=== PATIENT | female | born 1970 | race Caucasian/White ===

== ENCOUNTER 2017-05-07 07:47 | Inpatient (IN) | payer BC ==
[~2017-05-07 07:47] MED LIST: Acetaminophen 500 MG Tab PO SCH; Clindamycin Phosphate in D5W 900 MG in Premix Bag 1 BAG IV SCH; Famotidine 20 MG/2 ML SDV IVPUSH SCH; Ketorolac 30 MG/ML SDV IVPUSH SCH; Lactated Ringers 1,000 ML IV SCH; Ropivacaine 49.25 ML, EPINEPHrine 0.5 MG, cloNIDine 80 MCG in Sodium Chloride 0.9% 49.4... INJECT ONE; Ropivacaine 49.25 ML, Ketorolac 30 MG, EPINEPHrine 0.5 MG, cloNIDine 80 MCG in Sodium C... INJECT ONE; Scopolamine 1.5 MG Transdermal Patch TRDERM SCH; oxyCODONE ER 20 MG TAB.ER PO SCH
[2017-05-07] MEDS ORDERED: Lidocaine 2% 5 ML SDV ONE (08:50)
[2017-05-07] MEDS ORDERED: Ondansetron 4 MG/2 ML SDV ONE (08:50)
[2017-05-07] MEDS ORDERED: Propofol 200 MG/20 ML SDV ONE (08:50)
[2017-05-07] MEDS ORDERED: fentaNYL 250 MCG/5 ML SDV ONE (08:51)
[2017-05-07] MEDS ORDERED: Midazolam 1 MG/ML 2 ML SDV ONE (08:51)
--- NOTE | 2017-05-07 09:29 | PCM.PREANE ---
Preanesthetic Assessment - Procedure Proposed Procedure: Right Knee Total Arthroplasty - Anesthesia/Transfusion/Family Hx Anesthesia History: Prior Anesthesia Without Reaction Family History of Anesthesia Reaction: No Transfusion History: No Prior Transfusion(s) Additional History: Reurrent rapid heart rate - thoroughly evaluated and under treatment with PM metoprolol. - Review of Systems General: No Symptoms Pulmonary: Other (hx asthma; uses inhalants PRN) Cardiovascular: Palpitations Gastrointestinal: No Symptoms Neurological: Difficulty Walking (due to knee problem), Change in Speech (of back pain), Other (hx motion sickness prone; back pain - recurrent) Other: Reports: Anxiety - Physical Assessment NPO Status Date: 05/06/17 NPO Status Time: 23:00 O2 Sat by Pulse Oximetry: 95 Respiratory Rate: 16 Vital Signs: Last Vital Signs Temp 95.9 F 05/07/17 07:52 Pulse 44 L 05/07/17 07:52 Resp 16 05/07/17 07:52 BP 128/55 L 05/07/17 07:52 Pulse Ox 95 05/07/17 07:52 Height: 5 ft 7 in Weight: 220 lb ASA Class: 3 Mental Status: Alert & Oriented x3 Airway Class: Mallampati = 1 Dentition: Reports: Normal Dentition, Singer(s), Bridge (#8,9; PERMANENT) ROM/Head Extension: Full Lungs: Clear to Auscultation, Normal Respiratory Effort Cardiovascular: Regular Rate, Regular Rhythm, No Murmurs - Lab Values: Laboratory Last Values HCG, Qual NEGATIVE (NEG) 05/07/17 08:23 Blood Type O POSITIVE 05/07/17 08:22 Antibody Screen NEGATIVE 05/07/17 08:22 - Allergies Allergies/Adverse Reactions: Allergies Allergy/AdvReac Type Severity Reaction Status Date / Time Penicillins Allergy Anaphylactic Verified 05/07/17 08:51 Shock pneumococcal vaccine Allergy Hives Verified 05/07/17 08:51 - Blood Blood Available: Yes Product(s) Available: PRBC (T and S) - Anesthesia Plan Pre-Op Medication Ordered: None Beta Gillian: Metoprolol Med Last Dose Date: 05/06/17 Med Last Dose Time: 20:00 - Acknowledgements Anesthesia Type Planned: Spinal (with sedation ) Pt an Appropriate Candidate for the Planned Anesthesia: Yes Alternatives and Risks of Anesthesia Discussed w Pt/Guardian: Yes Pt/Guardian Understands and Agrees with Anesthesia Plan: Yes PreAnesthesia Questionnaire HEENT History: Reports: Allergic Rhinitis Cardiovascular History: Reports: Other (See Below) Other Cardiovascular History: PVC's Respiratory History: Reports: Asthma Gastrointestinal History: Reports: Irritable Bowel Syndrome Genitourinary History: Reports: None 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 History: Reports: 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, Musculoskeletal History: Reports: Arthritis Neurological History: Reports: Headaches, Chronic Endocrine/Metabolic History: Reports: Obesity/BMI 30+ - Past Surgical History Head Surgeries/Procedures: Reports: None HEENT Surgical History: Reports: Naso-Sinus Surgery, Tonsillectomy Female Surgical History: Reports: Other (See Below) Other Female Surgeries/Procedures: ESSURE, laparoscopy x4 for endometriosis, breast bx's rt x2, lt x1 Musculoskeletal Surgical History: Reports: Arthroscopic Knee Other Musculoskeletal Surgeries/Procedures:: knee surgery x2 - SUBSTANCE USE Smoking Status *Q: Never Smoker Recreational Drug Use History: No - HOME MEDS Home Medications: Home Meds Albuterol Sulfate [Proair Hfa] 1 puff INH ASDIRECTED PRN 05/02/17 [History] Black Cohosh 1 tab PO DAILY 05/02/17 [History] Metoprolol Succinate 25 mg PO BEDTIME 05/02/17 [History] Multivits-Minerals/FA/Lycopene [One Daily Tablet] 1 tab PO DAILY 05/02/17 [ History] - CURRENT (IN HOUSE) MEDS Current Meds: Current Medications Acetaminophen (Tylenol Extra Strength) 1,000 mg PO ONARRIVE TSEVE Last Admin: 05/07/17 08:13 Dose: 1,000 mg Famotidine (Pepcid) 40 mg IVPUSH ONARRIVE STEVE Last Admin: 05/07/17 08:16 Dose: 40 mg Lactated Ringer's (Ringers, Lactated) 1,000 mls @ 100 mls/hr IV ASDIRECTED STEVE Last Admin: 05/07/17 08:12 Dose: 100 mls/hr Clindamycin Phosphate 900 mg/ (Premix) 50 mls @ 100 mls/hr IV ONCALL STEVE Last Admin: 05/07/17 09:18 Dose: 100 mls/hr Oxycodone HCl (Oxycontin) 20 mg PO ONARRIVE STEVE Last Admin: 05/07/17 08:15 Dose: 20 mg Scopolamine (Transderm-Scop) 1.5 mg TRDERM ONARRIVE STEVE Last Admin: 05/07/17 08:16 Dose: 1.5 mg Tranexamic Acid (Cyklokapron) 4,000 mg IV SEECOMMENT STEVE Discontinued Medications Fentanyl (Sublimaze) Confirm Administered Dose 250 mcg .ROUTE .STK-MED ONE Stop: 05/07/17 08:52 Ropivacaine 49.25 ml/Ketorolac Tromethamine 30 mg/Epinephrine HCl 0.5 mg/ Clonidine HCl 80 mcg/ Sodium Chloride 100 mls @ 50 mls/min INJECT ONETIME ONE Stop: 05/07/17 06:01 Ropivacaine 49.25 ml/Epinephrine HCl 0.5 mg/Clonidine HCl 80 mcg/ Sodium Chloride 100 mls @ 50 mls/min INJECT ONETIME ONE Stop: 05/07/17 07:43 Ketorolac Tromethamine (Toradol) 30 mg IVPUSH ONARRIVE [facility] Lidocaine (Xylocaine-Mpf 2%) Confirm Administered Dose 5 ml .ROUTE .STK-MED ONE Stop: 05/07/17 08:51 Midazolam HCl (Versed 1 Mg/Ml) Confirm Administered Dose 2 mg .ROUTE .STK-MED ONE Stop: 05/07/17 08:52 Ondansetron HCl (Zofran) Confirm Administered Dose 4 mg .ROUTE .STK-MED ONE Stop: 05/07/17 08:51 Propofol (Diprivan 20 Ml) Confirm Administered Dose 200 mg .ROUTE .STK-MED ONE Stop: 05/07/17 08:51 Tranexamic Acid (Cyklokapron) Confirm Administered Dose 4,000 mg .ROUTE .STK- MED ONE Stop: 05/07/17 07:48
[2017-05-07] MEDS ORDERED: Albuterol 6.7 GM Inhaler INH PRN (09:32)
[2017-05-07] MEDS ORDERED: Morphine 10 MG/ML Syringe IVPUSH PRN (09:36)
[2017-05-07] MEDS ORDERED: oxyCODONE 5 MG Tab PO PRN (09:36)
[2017-05-07] MEDS ORDERED: Bisacodyl 10 MG Supp RECTAL PRN ×2 (09:36→09:54)
[2017-05-07] MEDS ORDERED: diphenhydrAMINE 25 MG Cap PO PRN ×2 (09:36→09:54)
[2017-05-07] MEDS ORDERED: Aluminum Hydroxide/Magnesium Hydroxide/Simethicone Susp 30 ML Cup PO PRN ×2 (09:36→09:54)
[2017-05-07] MEDS ORDERED: Scopolamine 1.5 MG Transdermal Patch ONE (09:37)
[2017-05-07] MEDS ORDERED: Morphine 4 MG/ML Syringe IVPUSH PRN (09:54)
[2017-05-07] MEDS ORDERED: Phenylephrine/Normal Saline 100 MCG/ML 10 ML Syringe ONE (09:57)
[2017-05-07] MEDS ORDERED: fentaNYL 100 MCG/2 ML SDV IVPUSH PRN (10:22)
--- NOTE | 2017-05-07 12:16 | PCM.OPNOTE ---
- General Post-Op/Procedure Note Date of Surgery/Procedure: 05/07/17 Operative Procedure(s): R TKA. HWR R tibia (deep implant) Post-Op Diagnosis: R TKA. Retained HW R tibia Anesthesia Technique: General LMA, Spinal Primary Surgeon: Maria M Santos Director Clinical Information Services: Shahla Vieyra Director Clinical Information Services: Marilyn Gerber in mLs: 50 Condition: Good Free Text/Narrative:: tt=85 min #[id number]
[2017-05-07] MEDS ORDERED: Ondansetron 4 MG/2 ML SDV IVPUSH PRN (14:04)
--- NOTE | 2017-05-07 14:20 | PCM.CONS ---
Addendum entered and electronically signed by Dilan Weldon MD 05/07/17 14:30: Original Note: H&P History of Present Illness - General Date of Service: 05/07/17 Admit Problem/Dx: Admission Diagnosis/Problem Admission Diagnosis/Problem Replacement of total knee joint Source of Information: Patient History Limitations: Reports: Altered Mental Status - History of Present Illness Initial Comments - Free Text/Narative: 46F with past medical history of PVC's on metoprolol for which I have been consulted for by orthopedics for medical management after a total right knee replacement. When meeting with the patient, she tells me that she feels nauseous and was complaining of a mild headache. However, she says she otherwise feels fine. She has no current complaints besides those mentioned. Her pain is well-controlled. She denies any palpitations or chest pain. There was some limitation to history gathering secondary to post anesthesia effects. - Related Data Allergies/Adverse Reactions: Allergies Allergy/AdvReac Type Severity Reaction Status Date / Time Penicillins Allergy Anaphylactic Verified 05/07/17 08:51 CDT Shock pneumococcal vaccine Allergy Hives Verified 05/07/17 08:51 CDT Home Medications: Home Meds Albuterol Sulfate [Proair Hfa] 1 puff INH ASDIRECTED PRN 05/02/17 [History] Black Cohosh 1 tab PO DAILY 05/02/17 [History] Metoprolol Succinate 25 mg PO BEDTIME 05/02/17 [History] Multivits-Minerals/FA/Lycopene [One Daily Tablet] 1 tab PO DAILY 05/02/17 [ History] Past Medical History HEENT History: Reports: Allergic Rhinitis Cardiovascular History: Reports: Other (See Below) Other Cardiovascular History: PVC's Respiratory History: Reports: Asthma Gastrointestinal History: Reports: Irritable Bowel Syndrome Genitourinary History: Reports: None 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: Reports: 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, Musculoskeletal History: Reports: Arthritis Neurological History: Reports: Headaches, Chronic Endocrine/Metabolic History: Reports: Obesity/BMI 30+ - Past Surgical History Head Surgeries/Procedures: Reports: None HEENT Surgical History: Reports: Naso-Sinus Surgery, Tonsillectomy Female Surgical History: Reports: Other (See Below) Other Female Surgeries/Procedures: ESSURE, laparoscopy x4 for endometriosis, breast bx's rt x2, lt x1 Musculoskeletal Surgical History: Reports: Arthroscopic Knee Other Musculoskeletal Surgeries/Procedures:: knee surgery x2 Social & Family History - Tobacco Use Smoking Status *Q: Never Smoker - Recreational Drug Use Recreational Drug Use: No H&P Review of Systems - Review of Systems: Review Of Systems: See Below General: Denies: Fever, Chills, Malaise, Weakness, Fatigue HEENT: Reports: Headaches. Denies: Sore Throat, Visual Changes Pulmonary: Denies: Shortness of Breath, Pleuritic Chest Pain, Cough Cardiovascular: Denies: Chest Pain, Palpitations, Dyspnea on Exertion, Lightheadedness, Syncope, Blood Pressure Problem Gastrointestinal: Denies: Abdominal Pain Skin: Reports: No Symptoms Psychiatric: Reports: No Symptoms Neurological: Reports: No Symptoms Hematologic/Lymphatic: Reports: No Symptoms Immunologic: Reports: No Symptoms Exam - Exam Exam: See Below - Vital Signs Vital Signs: Last Vital Signs Temp 36.2 C 05/07/17 14:00 Pulse 62 05/07/17 14:00 Resp 18 05/07/17 14:00 BP 120/58 L 05/07/17 14:00 Pulse Ox 96 05/07/17 14:00 Weight: 99.79 kg - Exam General: Alert, Oriented, Cooperative HEENT: Conjunctiva Clear, EOMI, Hearing Intact, Mucosa Moist & [place], Nares Patent Neck: Supple, Trachea Midline, Full Range of Motion Lungs: Clear to Auscultation, Normal Respiratory Effort. No: Crackles, Rales, Rhonchi, Stridor, Wheezing Cardiovascular: Regular Rate, Regular Rhythm, Normal S1, Normal S2 GI/Abdominal Exam: Normal Bowel Sounds, Soft, Non-Tender Skin: Warm, Intact Psychiatric: Alert, Normal Affect, Normal Mood - Patient Data Lab Results Last 24 hrs: Laboratory Results - last 24 hr 05/07/17 05/07/17 Range/Units 08:22 08:23 HCG, Qual NEGATIVE (NEG) Blood Type O POSITIVE Antibody Screen NEGATIVE Consult PN Assessment/Plan POD#: 0 Procedures: Procedures ASSAY OF GONADOTROPIN (FSH) (12/20/15) ASSAY OF GONADOTROPIN (LH) (12/20/15) ASSAY THYROID STIM HORMONE (12/09/14) CARDIOVASCULAR STRESS TEST (12/21/16) CHEST X-RAY 2VW FRONTAL&LATL (04/16/17) CHORIONIC GONADOTROPIN ASSAY (01/30/14) COMP SCREEN MAMMOGRAM ADD-ON (12/20/15) COMPLETE CBC W/AUTO DIFF WBC (04/16/17) COMPREHEN METABOLIC PANEL (12/09/14) ELECTROCARDIOGRAM TRACING (04/16/17) GLYCOSYLATED HEMOGLOBIN TEST (04/16/17) HPV HIGH-RISK TYPES (12/22/16) HT MUSCLE IMAGE SPECT SING (12/25/16) INFLUENZA ASSAY W/OPTIC (08/21/16) LIPID PANEL (12/09/14) MANUAL THERAPY 1/> REGIONS (04/13/14) METABOLIC PANEL TOTAL CA (04/16/17) MRI JOINT OF LWR EXTR W/DYE (02/04/14) PROTHROMBIN TIME (04/16/17) PT EVALUATION (03/12/14) ROUTINE VENIPUNCTURE (04/16/17) THERAPEUTIC EXERCISES (04/22/14) TTE W/DOPPLER COMPLETE (12/25/16) URINALYSIS AUTO W/SCOPE (04/27/17) URINE BACTERIA CULTURE (12/03/13) URINE CULTURE/COLONY COUNT (04/16/17) US EXAM BREAST(S) (01/13/14) X-RAY EXAM KNEE 4 OR MORE (07/26/16) (1) PVC (premature ventricular contraction) SNOMED Code(s): 54446768 Code(s): I49.3 - VENTRICULAR PREMATURE DEPOLARIZATION Priority: Low Current Visit: Yes Assessment:: 1. History of PVC's - currently asymptomatic. On home medication Metoprolol 25mg PO QHS. 2. Nausea Problem List Initiated/Reviewed/Updated: Yes My Orders Last 24 Hours: My Active Orders 1. CBC, CMP, Magnesium now, recheck in AM 2. Recommend pharmacological DVT prophylaxis once deemed safe by surgery. 3. Continue telemetry 4. IV Zofran 4mg Q6hrs PRN for nausea/vomiting.
[2017-05-07 15:02] LABS: CHLORIDE,CL 109 mmol/L (98-110); SODIUM,NA 141 mmol/L (136-146)
[2017-05-07] MEDS ORDERED: Magnesium Sulfate/Water 2 GM in Premix Bag 1 BAG IV ONE (15:38)
--- NOTE | 2017-05-07 16:32 | CR ---
EXAMINATION: Right knee HISTORY: Arthroplasty COMPARISON: 07/26/2016 TECHNIQUE: 2 views FINDINGS/IMPRESSION: Right total knee hardware is demonstrated in good position and alignment. There is an anchor noted within the distal right femur from previous ACL repair. Operative soft tissue funk ges noted.
[2017-05-07] MEDS ORDERED: Ketorolac 30 MG/ML SDV IVPUSH SCH (17:00)
--- NOTE | 2017-05-07 19:03 | OR ---
SURGEON: Maria M Santos MD DATE OF PROCEDURE: 05/07/2017 PREOPERATIVE DIAGNOSES: 1. Degenerative joint disease, right knee, tricompartmental. 2. Retained hardware, right proximal tibia and distal femur. POSTOPERATIVE DIAGNOSES: 1. Degenerative joint disease, right knee, tricompartmental. 2. Retained hardware, right proximal tibia and distal femur. PROCEDURES: 1. Right total knee arthroplasty using standard instrumentation. 2. Hardware removal, right tibia, deep implant. ASSISTANTS: 1. Shahla Vieyra PA-C. 2. Marilyn Gerber PA-C. ANESTHESIA: Spinal and general. ESTIMATED BLOOD LOSS: 50 mL. TOURNIQUET TIME: 85 minutes. COMPLICATIONS: None. DVT PROPHYLAXIS: PAS boot and KATHY hose to the nonoperative leg. IMPLANTS USED: Kelsey Persona femoral component size 9 narrow (LPS), tibial component size E, 10 mm all-polyethylene articular surface, and 32 mm all-polyethylene patella. INTRAOPERATIVE FINDINGS: Showed evidence of tricompartmental degenerative joint disease with grade 4 chondromalacia in all compartments. Osteophyte formation was also noted. Osteophyte formation was abundant within the notch as she has had a previous ACL reconstruction. As the tibia was prepared, we did encounter the omid within the proximal tibia and we were unable to fully prepare the tibia. The tibial preparatory instruments were removed. The omid were then removed. There was some difficulty removing these as it was abundant bone formation over the omid. The bone was removed with an osteotome. BRIEF HISTORY: Jenelle is a 46-year-old female who has had complaint of progressive right knee pain. She has previously undergone a right knee ACL reconstruction many years ago. Due to her lack of response to conservative treatment, I did recommend surgical intervention. The risks and goals of the procedure were discussed with the patient and were documented preoperatively. She agreed to proceed. DESCRIPTION OF PROCEDURE: The patient was properly identified and brought to the operating room. The patient was then transferred from the operating room cart and placed on the operating table in a supine position. Anesthesia was administered by the anesthesia staff. After adequate anesthesia was obtained, a well-padded tourniquet was applied to the surgical lower extremity. West[place] catheter was placed. The lower extremity was then prepped in standard fashion using ChloraPrep solution. It was then sterilely draped. A time-out was performed to ensure correct site and procedure. Preoperative antibiotics were given along with one gram tranexamic acid IV. The surgical site had been marked preoperatively. An Esmarch was used to exsanguinate the right lower extremity and the tourniquet was inflated. An incision was made over the anterior aspect of the knee. The subcutaneous tissues were dissected down to the level of the fascia. A medial parapatellar approach to the knee was made. A portion of the infrapatellar fat pad was then excised. The distal femur was then exposed. The step reamer was used to gain access to the intramedullary canal. This was placed in 6 degrees of valgus. Pins were placed. The distal femoral cutting block was placed and the distal femoral cut was made. Instrumentation was then removed. The femur was then sized. Both Whitesides' line and the epicondylar axis were then marked with electrocautery. The 4-in-1 cutting block was placed. This was placed in a slightly externally rotated position, which corresponded well with the previously drawn lines. The cutting guide was then pinned into position. An Ganesh wing guide was used to check the depth of resection of our anterior condylar cut and it was felt that no notching would occur. The anterior condylar cut was then made followed by the posterior condylar cut. Both the posterior chamfer and anterior chamfer cuts were then made. The cutting block was then removed along with the excess bony remnants. We then turned our attention to the tibia. The anterior cruciate ligament and posterior cruciate ligament were released and a posterior cruciate ligament retractor was placed to allow the tibia to be pulled anteriorly. The tibial extra-medullary guide was then positioned. We chose to take approximately 2 mm off the lowest side. The proximal tibia cutting guide was then placed and screwed into position. The proximal tibial resection was then made with care being taken to protect the patellar tendon. The bony resection was then removed. The remainder of the medial and lateral meniscus were then excised. Care was taken to protect the popliteus tendon. The tibia was then sized to the appropriate size. The distal femur was then elevated. The posterior capsule was stripped off the distal femur both medially and laterally. The posterior capsule along with the medial and lateral gutters were then injected with a standard mixture consisting of clonidine, epinephrine, Toradol, and ropivacaine, unless any allergies were found preoperatively. The femoral component was then placed onto the distal femur in a slightly lateral position. This fit the femur well. A box cut was then made without difficulty. This was then removed. The tibial trial along with the polyethylene liner was then placed. The knee came easily into full extension and was stable to varus and valgus stressing both in full extension and flexion. Any additional releases were performed at this time. We then returned our attention to the patella. The patella was everted and towel clamps were used to hold the patella in position. It was resected to a 15 millimeter thickness. It was then sized to the appropriate size. It was prepared in the usual fashion after placing the predetermined size clamps. This was placed in a slightly superior and medial position. The clamp was then removed. The patellar trial button was placed. The knee was taken through a range of motion using the no-touch technique. The patella tracked centrally. A drop zhanna was then placed to check alignment. All instruments were then removed from the knee. The tibial sizer was then placed on the tibia. We attempted to prepare the tibia was in the usual fashion using the reamer and broach. We encountered the proximal tibia omid, which did not allow the reamer to seat fully. The omid were then exposed. Unfortunately, the omid were crossed over each other,which made putting on the staple removal guide difficulty. I was able to use osteotomes to fully expose the omid. The proximal staple was then elevated which allowed the staple removal attachment and slap hammer to be attached. Both omid were then removed without difficulty. The proximal tibia reamer and broach were then used in the standard fashion. They were then removed. All bony surfaces were copiously irrigated with Pulsavac solution. They were then suctioned dry. Cement was prepared on the back table in the usual manner. Antibiotic impregnated cement was used if the patient was diabetic. Once it was prepared, the bone ends were again suctioned dry. The tibia was cemented into place first. This was malleted into position. Excess cement was then cleared. The femur was then placed in a similar manner. We placed the polyethylene trial into place and the knee was brought into full extension. An axial load was placed while keeping the knee in full extension. The patella button was also cemented into position and the clamp was used to hold this in place as the cement was allowed to cure. The wound was copiously irrigated with saline using a Pulsavac technical artist. Following this, 1 gram of tranexamic acid was applied topically to the wound during the curing process. After we had adequate curing of the cement, the knee was again taken through a range of motion. The size of the polyethylene was then determined. The polyethylene trial was then removed. The tibial tray was suctioned to make sure there was no remaining soft tissue or cement. Excess cement was cleared from around the edges of the prosthesis as well. The tourniquet was then deflated. We were able to observe for any excess bleeding and none was noted. Electrocautery was used to maintain hemostasis. An additional gram of tranexamic acid was given IV. The retractors were again placed and the predetermined polyethylene was then placed. This was locked into position without difficulty. The knee was again taken through a range of motion with no change from the prior exam. The fascial layer was closed with Number One Vicryl. The subcutaneous tissues were closed with 2-0 Vicryl. The skin was closed with omid. Xeroform gauze was placed over the wound and a bulky dressing was applied. The patient was then awakened from anesthesia and transferred back to the operating room cart. They were brought to the recovery room in stable condition. All needle and sponge counts were correct. JOSSUE / OWEN /[id number] JUAN LUIS
[2017-05-07] MEDS ORDERED: oxyCODONE ER 20 MG TAB.ER PO SCH (21:00)
[2017-05-07] MEDS ORDERED: Metoprolol Succinate 25 MG Tab.ER PO SCH (21:00)
[2017-05-07] MEDS ORDERED: Docusate Sodium 100 MG Cap PO SCH (21:00)
[2017-05-08 05:44] LABS: CHLORIDE,CL 105 mmol/L (98-110); SODIUM,NA 138 mmol/L (136-146)
--- NOTE | 2017-05-08 06:51 | PCM48HPAN ---
Post Anesthesia Note - EVALUATION WITHIN 48HRS OF ANESTHETIC Vital Signs in Normal Range: Yes Patient Participated in Evaluation: Yes Respiratory Function Stable: Yes Airway Patent: Yes Cardiovascular Function Stable: Yes Hydration Status Stable: Yes Pain Control Satisfactory: Yes Nausea and Vomiting Control Satisfactory: Yes Mental Status Recovered: Yes - COMMENTS/OBSERVATIONS Free Text/Narrative:: Pt reports pain is well controlled on PO Rx. Some nausea yesterday.
--- NOTE | 2017-05-08 07:59 | PCM.SURGPN ---
<Jose Rubio - Last Filed: 05/08/17 07:52> - General Info Date of Service: 05/08/17 Date of Surgery/Procedure: 05/07/17 POD#: 1 Post-Op Diagnosis: Right Total Knee Arthroplasty Admission Diagnosis/Problem: Arthritis of right knee Functional Status: Reports: Pain Controlled, Incentive Spirometry. Denies: Tolerating Diet, Ambulating, Urinating - Review of Systems General: Denies: Fever, Chills Pulmonary: Denies: Shortness of Breath (On 1 L/O2 via NC), Cough Cardiovascular: Denies: Chest Pain, Palpitations Gastrointestinal: Denies: Nausea, Vomiting Genitourinary: Denies: No Symptoms (With chapman) Musculoskeletal: Reports: Joint Pain (Mild right knee pain) Neurological: Denies: Confusion, Numbness Psychiatric: Denies: Confusion - Patient Data Vitals - Most Recent: Last Vital Signs Temp 36.8 C 05/08/17 05:20 Pulse 68 05/08/17 05:20 Resp 20 05/08/17 05:20 BP 110/59 L 05/08/17 05:20 Pulse Ox 95 05/08/17 05:20 Weight - Most Recent: 99.79 kg I&O - Last 24 Hours: Intake & Output 05/07/17 05/08/17 05/08/17 22:59 06:59 14:59 Intake Total 0 1003 Output Total 180 980 Balance -180 23 Lab Results Last 24 Hrs: Laboratory Results - last 24 hr 05/07/17 05/07/17 05/07/17 Range/Units 08:22 08:23 14:32 WBC 6.03 (4.0-11.0) K/uL RBC 4.38 (4.30-5.90) M/uL Hgb 11.7 L (12.0-16.0) g/dL Hct 35.5 L (36.0-46.0) % MCV 81.1 (80.0-98.0) fL MCH 26.7 L (27.0-32.0) pg MCHC 33.0 (31.0-37.0) g/dL RDW Std Deviation 36.4 (28.0-62.0) fl RDW Coeff of Eliza 13 (11.0-15.0) % Plt Count 227 (150-400) K/uL MPV 10.40 (7.40-12.00) fL Neut % (Auto) 67.5 (48.0-80.0) % Lymph % (Auto) 25.2 (16.0-40.0) % [place] % (Auto) 6.8 (0.0-15.0) % Eos % (Auto) 0.3 (0.0-7.0) % Baso % (Auto) 0.2 (0.0-1.5) % Neut # (Auto) 4.1 (1.4-5.7) K/uL Lymph # (Auto) 1.5 (0.6-2.4) K/uL [place] # (Auto) 0.4 (0.0-0.8) K/uL Eos # (Auto) 0.0 (0.0-0.7) K/uL Baso # (Auto) 0.0 (0.0-0.1) K/uL Nucleated RBC % 0.0 /100WBC Nucleated RBCs # 0 K/uL Sodium (136-146) mmol/L Potassium (3.5-5.1) mmol/L Chloride (98-110) mmol/L Carbon Dioxide (21-31) mmol/L BUN (6.0-23.0) mg/dL Creatinine (0.6-1.5) mg/dL Est Cr Clr Drug Dosing mL/min Estimated GFR (MDRD) ml/min Glucose (60-110) mg/dL Calcium (8.8-10.8) mg/dL Magnesium (1.5-2.3) mEq/L HCG, Qual NEGATIVE (NEG) Blood Type O POSITIVE Antibody Screen NEGATIVE 05/07/17 05/08/17 05/08/17 Range/Units 14:32 04:33 04:33 WBC 7.73 (4.0-11.0) K/uL RBC 4.09 L (4.30-5.90) M/uL Hgb 10.8 L (12.0-16.0) g/dL Hct 33.6 L (36.0-46.0) % MCV 82.2 (80.0-98.0) fL MCH 26.4 L (27.0-32.0) pg MCHC 32.1 (31.0-37.0) g/dL RDW Std Deviation 37.9 (28.0-62.0) fl RDW Coeff of Eliza 13 (11.0-15.0) % Plt Count 219 (150-400) K/uL MPV 10.40 (7.40-12.00) fL Neut % (Auto) 80.3 H (48.0-80.0) % Lymph % (Auto) 10.7 L (16.0-40.0) % [place] % (Auto) 8.8 (0.0-15.0) % Eos % (Auto) 0.1 (0.0-7.0) % Baso % (Auto) 0.1 (0.0-1.5) % Neut # (Auto) 6.2 H (1.4-5.7) K/uL Lymph # (Auto) 0.8 (0.6-2.4) K/uL [place] # (Auto) 0.7 (0.0-0.8) K/uL Eos # (Auto) 0.0 (0.0-0.7) K/uL Baso # (Auto) 0.0 (0.0-0.1) K/uL Nucleated RBC % 0.0 /100WBC Nucleated RBCs # 0 K/uL Sodium 141 138 (136-146) mmol/L Potassium 3.9 4.3 (3.5-5.1) mmol/L Chloride 109 105 (98-110) mmol/L Carbon Dioxide 24 28 (21-31) mmol/L BUN 13 10 (6.0-23.0) mg/dL Creatinine 0.7 0.6 (0.6-1.5) mg/dL Est Cr Clr Drug Dosing 95.58 111.51 mL/min Estimated GFR (MDRD) > 60.0 > 60.0 ml/min Glucose 125 H 113 H (60-110) mg/dL Calcium 9.0 8.9 (8.8-10.8) mg/dL Magnesium 1.3 L (1.5-2.3) mEq/L HCG, Qual (NEG) Blood Type Antibody Screen 05/08/17 Range/Units 06:24 WBC (4.0-11.0) K/uL RBC (4.30-5.90) M/uL Hgb 10.7 L (12.0-16.0) g/dL Hct 33.6 L (36.0-46.0) % MCV (80.0-98.0) fL MCH (27.0-32.0) pg MCHC (31.0-37.0) g/dL RDW Std Deviation (28.0-62.0) fl RDW Coeff of Eliza (11.0-15.0) % Plt Count (150-400) K/uL MPV (7.40-12.00) fL Neut % (Auto) (48.0-80.0) % Lymph % (Auto) (16.0-40.0) % [place] % (Auto) (0.0-15.0) % Eos % (Auto) (0.0-7.0) % Baso % (Auto) (0.0-1.5) % Neut # (Auto) (1.4-5.7) K/uL Lymph # (Auto) (0.6-2.4) K/uL [place] # (Auto) (0.0-0.8) K/uL Eos # (Auto) (0.0-0.7) K/uL Baso # (Auto) (0.0-0.1) K/uL Nucleated RBC % /100WBC Nucleated RBCs # K/uL Sodium (136-146) mmol/L Potassium (3.5-5.1) mmol/L Chloride (98-110) mmol/L Carbon Dioxide (21-31) mmol/L BUN (6.0-23.0) mg/dL Creatinine (0.6-1.5) mg/dL Est Cr Clr Drug Dosing mL/min Estimated GFR (MDRD) ml/min Glucose (60-110) mg/dL Calcium (8.8-10.8) mg/dL Magnesium (1.5-2.3) mEq/L HCG, Qual (NEG) Blood Type Antibody Screen Med Orders - Current: Current Medications Acetaminophen (Tylenol Extra Strength) 1,000 mg PO Q6H [facility] Al Hydroxide/Mg Hydroxide (Mag-Al Plus) 30 ml PO Q4H PRN PRN Reason: indigestion Albuterol (Proventil Hfa) 0 gm INH ASDIRECTED PRN PRN Reason: Shortness of Breath Aspirin (Aspirin) 325 mg PO BID [facility] Bisacodyl (Dulcolax) 10 mg RECTAL DAILY PRN PRN Reason: Constipation Celecoxib (Celebrex) 200 mg PO BID [facility] Diphenhydramine HCl (Benadryl) 25 - 50 mg PO Q6H PRN PRN Reason: Itching Docusate Sodium (Colace) 100 mg PO BID [facility] Famotidine (Pepcid) 40 mg PO DAILY [facility] Metoprolol Succinate (Toprol Xl) 25 mg PO BEDTIME [facility] Morphine Sulfate (Morphine) 1 - 3 mg IVPUSH Q3H PRN PRN Reason: Pain Multivitamins/Minerals (Thera M Plus) 1 tab PO DAILY [facility] Ondansetron HCl (Zofran) 4 mg IVPUSH Q6H PRN PRN Reason: Nausea/Vomiting Oxycodone HCl (Oxycodone) 5 - 10 mg PO Q4H PRN PRN Reason: Pain Oxycodone HCl (Oxycontin) 20 mg PO Q12HR [facility] Scopolamine (Transderm-Scop) 1.5 mg TRDERM ONARRIVE [facility] Last Admin: 05/07/17 08:16 Dose: 1.5 mg Discontinued Medications Acetaminophen (Tylenol Extra Strength) 1,000 mg PO ONARRIVE [facility] Last Admin: 05/07/17 08:13 Dose: 1,000 mg Acetaminophen (Tylenol Extra Strength) 1,000 mg PO Q6H [facility] Al Hydroxide/Mg Hydroxide (Mag-Al Plus) 30 ml PO Q4H PRN PRN Reason: indigestion Aspirin (Aspirin) 325 mg PO BID [facility] Bisacodyl (Dulcolax) 10 mg RECTAL DAILY PRN PRN Reason: Constipation Celecoxib (Celebrex) 200 mg PO BID [facility] Diphenhydramine HCl (Benadryl) 25 - 50 mg PO Q6H PRN PRN Reason: Itching Docusate Sodium (Colace) 100 mg PO BID [facility] Famotidine (Pepcid) 40 mg IVPUSH ONARRIVE [facility] Last Admin: 05/07/17 08:16 Dose: 40 mg Famotidine (Pepcid) 40 mg PO DAILY [facility] Fentanyl (Sublimaze) Confirm Administered Dose 250 mcg .ROUTE .STK-MED ONE Stop: 05/07/17 08:52 Fentanyl (Sublimaze) 50 mcg IVPUSH Q5M PRN PRN Reason: Pain (severe 7-10) Stop: 05/08/17 10:23 Glycopyrrolate () Confirm Administered Dose 1 mg .ROUTE .STK-MED ONE Stop: 05/07/17 09:47 Ropivacaine 49.25 ml/Ketorolac Tromethamine 30 mg/Epinephrine HCl 0.5 mg/ Clonidine HCl 80 mcg/ Sodium Chloride 100 mls @ 50 mls/min INJECT ONETIME ONE Stop: 05/07/17 06:01 Lactated Ringer's (Ringers, Lactated) 1,000 mls @ 100 mls/hr IV ASDIRECTED [facility] Last Admin: 05/07/17 08:12 Dose: 100 mls/hr Clindamycin Phosphate 900 mg/ (Premix) 50 mls @ 100 mls/hr IV ONCALL [facility] Last Admin: 05/07/17 09:18 Dose: 100 mls/hr Ropivacaine 49.25 ml/Epinephrine HCl 0.5 mg/Clonidine HCl 80 mcg/ Sodium Chloride 100 mls @ 50 mls/min INJECT ONETIME ONE Stop: 05/07/17 07:43 Acetaminophen 1,000 mg/ Premix 100 mls @ 400 mls/hr IV Q6H [facility] Stop: 05/08/17 02:14 Clindamycin Phosphate 900 mg/ (Premix) 50 mls @ 100 mls/hr IV Q8H [facility] Stop: 05/08/17 02:29 Magnesium Sulfate 2 gm/ Premix 50 mls @ 50 mls/hr IV ONETIME ONE Stop: 05/07/17 16:37 Ketorolac Tromethamine (Toradol) 30 mg IVPUSH ONARRIVE [facility] Ketorolac Tromethamine (Toradol) 30 mg IVPUSH Q6H [facility] Stop: 05/08/17 09:00 Ketorolac Tromethamine (Toradol) 30 mg IVPUSH Q6H [facility] Stop: 05/08/17 05:01 Lidocaine (Xylocaine-Mpf 2%) Confirm Administered Dose 5 ml .ROUTE .STK-MED ONE Stop: 05/07/17 08:51 Metoprolol Succinate (Toprol Xl) 25 mg PO BEDTIME [facility] Midazolam HCl (Versed 1 Mg/Ml) Confirm Administered Dose 2 mg .ROUTE .STK-MED ONE Stop: 05/07/17 08:52 Morphine Sulfate (Morphine) 1 - 3 mg IVPUSH Q3H PRN PRN Reason: Pain Non-Formulary Medication (Multivits-Minerals/Fa/Lycopene [One Daily Tablet]) 1 tab PO DAILY [facility] Ondansetron HCl (Zofran) Confirm Administered Dose 4 mg .ROUTE .STK-MED ONE Stop: 05/07/17 08:51 Oxycodone HCl (Oxycontin) 20 mg PO ONARRIVE [facility] Last Admin: 05/07/17 08:15 Dose: 20 mg Oxycodone HCl (Oxycodone) 5 - 10 mg PO Q4H PRN PRN Reason: Pain Oxycodone HCl (Oxycontin) 20 mg PO Q12HR [facility] Phenylephrine HCl (Phenylephrine In Ns 100 Mcg/Ml) Confirm Administered Dose 1 mg .ROUTE .STK-MED ONE Stop: 05/07/17 09:58 Propofol (Diprivan 20 Ml) Confirm Administered Dose 200 mg .ROUTE .STK-MED ONE Stop: 05/07/17 08:51 Scopolamine (Transderm-Scop) Confirm Administered Dose 1.5 mg .ROUTE .STK-MED ONE Stop: 05/07/17 09:38 Tranexamic Acid (Cyklokapron) 4,000 mg IV SEECOMMENT [facility] Tranexamic Acid (Cyklokapron) Confirm Administered Dose 4,000 mg .ROUTE .STK- MED ONE Stop: 05/07/17 07:48 - Exam Wound/Incisions: Dressing Dry and Intact Quality Assessment: Supplemental Oxygen, Urine Catheter General: Alert, Oriented, Cooperative, No Acute Distress Lungs: Clear to Auscultation (On 1 L/O2 vai NC) Cardiovascular: Regular Rate, Regular Rhythm GI/Abdominal Exam: Soft, Non-Tender, No Distention Extremities: Normal Capillary Refill, Other (Dressing Clean Dry Intact, DP pulse 2+) Skin: Warm, Dry Neurological: Normal Speech, Sensation Intact Psy/Mental Status: Alert, Normal Affect, Normal Mood - Problem List Review Problem List Initiated/Reviewed/Updated: Yes - My Orders Last 24 Hours: Active Orders 24 hr Category Date Time Status Patient Status [ADT] Routine ADT 05/07/17 09:36 Active Activity as Tolerated [RC] .Routine Care 05/07/17 09:35 Active Dressing Change [Wound Care] [RC] ASDIRECTED Care 05/07/17 09:35 Active Neurovascular Check [RC] Q2HR Care 05/07/17 09:35 Active Notify Provider Consults [RC] ASDIRECTED Care 05/07/17 09:37 Active Notify Provider Vital Signs [RC] ASDIRECTED Care 05/07/17 09:35 Active RT Incentive Spirometry [RC] ASDIRECTED Care 05/07/17 09:35 Active Remove Chapman Catheter [Urinary Catheter Removal] [RC] Care 05/08/17 07:50 Ordered Per Unit Routine Telemetry Monitoring [Cardiac Monitoring] [RC] Q8H Care 05/07/17 11:59 Active Vital Signs [RC] Q4H Care 05/07/17 09:35 Active Consult to Physician [CONS] Routine Cons 05/07/17 09:34 Active PT Evaluation and Treatment [CONS] Routine Cons 05/07/17 09:34 Active HEMOGLOBIN/HEMATOCRIT,HH [HEME] DAILY Lab 05/09/17 06:00 Ordered HEMOGLOBIN/HEMATOCRIT,HH [HEME] DAILY Lab 05/10/17 06:00 Ordered Acetaminophen [Tylenol Extra Strength] Med 05/08/17 08:00 Active 1,000 mg PO Q6H Albuterol [Proventil HFA] Med 05/07/17 09:32 Active 0 gm INH ASDIRECTED PRN Alum Hydrox/Mag Hydrox/Simeth [Mag-Al Plus] Med 05/07/17 09:54 Active 30 ml PO Q4H PRN Aspirin Med 05/08/17 09:00 Active 325 mg PO BID Bisacodyl [Dulcolax] Med 05/07/17 09:54 Active 10 mg RECTAL DAILY PRN Celecoxib [CeleBREX] Med 05/08/17 09:00 Active 200 mg PO BID Docusate Sodium [Colace] Med 05/07/17 21:00 Active 100 mg PO BID Famotidine [Pepcid] Med 05/08/17 09:00 Active 40 mg PO DAILY Metoprolol Succinate [Toprol XL] Med 05/07/17 21:00 Active 25 mg PO BEDTIME Morphine Med 05/07/17 09:54 Active 1 - 3 mg IVPUSH Q3H PRN Multivitamins w-Iron/Ca/FA/Min [Thera M Plus] Med 05/08/17 09:00 Active 1 tab PO DAILY Ondansetron [Zofran] Med 05/07/17 14:04 Active 4 mg IVPUSH Q6H PRN diphenhydrAMINE [Benadryl] Med 05/07/17 09:54 Active 25 - 50 mg PO Q6H PRN oxyCODONE Med 05/07/17 09:54 Active 5 - 10 mg PO Q4H PRN oxyCODONE ER [OxyCONTIN] Med 05/07/17 21:00 Active 20 mg PO Q12HR Ice Therapy [OM.PC] Routine Oth 05/07/17 09:35 Ordered Medication Orders Acetaminophen (Tylenol Extra Strength) 1,000 mg PO Q6H [facility] Al Hydroxide/Mg Hydroxide (Mag-Al Plus) 30 ml PO Q4H PRN PRN Reason: indigestion Albuterol (Proventil Hfa) 0 gm INH ASDIRECTED PRN PRN Reason: Shortness of Breath Aspirin (Aspirin) 325 mg PO BID [facility] Bisacodyl (Dulcolax) 10 mg RECTAL DAILY PRN PRN Reason: Constipation Celecoxib (Celebrex) 200 mg PO BID [facility] Diphenhydramine HCl (Benadryl) 25 - 50 mg PO Q6H PRN PRN Reason: Itching Docusate Sodium (Colace) 100 mg PO BID [facility] Famotidine (Pepcid) 40 mg PO DAILY [facility] Metoprolol Succinate (Toprol Xl) 25 mg PO BEDTIME [facility] Morphine Sulfate (Morphine) 1 - 3 mg IVPUSH Q3H PRN PRN Reason: Pain Multivitamins/Minerals (Thera M Plus) 1 tab PO DAILY [facility] Ondansetron HCl (Zofran) 4 mg IVPUSH Q6H PRN PRN Reason: Nausea/Vomiting Oxycodone HCl (Oxycodone) 5 - 10 mg PO Q4H PRN PRN Reason: Pain Oxycodone HCl (Oxycontin) 20 mg PO Q12HR [facility] Scopolamine (Transderm-Scop) 1.5 mg TRDERM ONARRIVE [facility] Last Admin: 05/07/17 08:16 Dose: 1.5 mg - Assessment Assessment (Free Text/Narrative):: MS Perez is POD 1 Right total knee Arthroplasty, nausea overnight and was unable to tolerate dinner or therapy, no acute events overnight, this morning nausea and pain well controlled, denies fevers, chills, chest pain, shortness of breath on 1 L/O2 via NC, is voiding per chapman in adequate amount. RLE sensation intact, pulses 2+, dressing is C/D/I. - Plan Plan (Free Text/Narrative):: Discontinue IVF and Chapman catheter and monitor for post-Chapman removal void. Discontinue Toradol and begin Celebrex Up with Therapies IS and up in bed, ween supplemental O2 as tolerated Discharge pending adequate pain control, weaning of supplemental O2, tolerance of diet, post-Chapman removal void, adequate mobility with therapies. <Maria M Santos - Last Filed: 05/08/17 13:44> - Patient Data Vitals - Most Recent: Last Vital Signs Temp 99.2 F 05/08/17 12:27 Pulse 78 05/08/17 12:27 Resp 14 05/08/17 12:27 BP 124/67 05/08/17 12:27 Pulse Ox 97 05/08/17 12:27 I&O - Last 24 Hours: Intake & Output 05/07/17 05/08/17 05/08/17 22:59 06:59 14:59 Intake Total 0 1003 Output Total 180 980 Balance -180 23 Lab Results Last 24 Hrs: Laboratory Results - last 24 hr 05/07/17 05/07/17 05/08/17 Range/Units 14:32 14:32 04:33 WBC 6.03 7.73 (4.0-11.0) K/uL RBC 4.38 4.09 L (4.30-5.90) M/uL Hgb 11.7 L 10.8 L (12.0-16.0) g/dL Hct 35.5 L 33.6 L (36.0-46.0) % MCV 81.1 82.2 (80.0-98.0) fL MCH 26.7 L 26.4 L (27.0-32.0) pg MCHC 33.0 32.1 (31.0-37.0) g/dL RDW Std Deviation 36.4 37.9 (28.0-62.0) fl RDW Coeff of Eliza 13 13 (11.0-15.0) % Plt Count 227 219 (150-400) K/uL MPV 10.40 10.40 (7.40-12.00) fL Neut % (Auto) 67.5 80.3 H (48.0-80.0) % Lymph % (Auto) 25.2 10.7 L (16.0-40.0) % [place] % (Auto) 6.8 8.8 (0.0-15.0) % Eos % (Auto) 0.3 0.1 (0.0-7.0) % Baso % (Auto) 0.2 0.1 (0.0-1.5) % Neut # (Auto) 4.1 6.2 H (1.4-5.7) K/uL Lymph # (Auto) 1.5 0.8 (0.6-2.4) K/uL [place] # (Auto) 0.4 0.7 (0.0-0.8) K/uL Eos # (Auto) 0.0 0.0 (0.0-0.7) K/uL Baso # (Auto) 0.0 0.0 (0.0-0.1) K/uL Nucleated RBC % 0.0 0.0 /100WBC Nucleated RBCs # 0 0 K/uL Sodium 141 (136-146) mmol/L Potassium 3.9 (3.5-5.1) mmol/L Chloride 109 (98-110) mmol/L Carbon Dioxide 24 (21-31) mmol/L BUN 13 (6.0-23.0) mg/dL Creatinine 0.7 (0.6-1.5) mg/dL Est Cr Clr Drug Dosing 95.58 mL/min Estimated GFR (MDRD) > 60.0 ml/min Glucose 125 H (60-110) mg/dL Calcium 9.0 (8.8-10.8) mg/dL Magnesium 1.3 L (1.5-2.3) mEq/L 05/08/17 05/08/17 05/08/17 Range/Units 04:33 04:33 06:24 WBC (4.0-11.0) K/uL RBC (4.30-5.90) M/uL Hgb 10.7 L (12.0-16.0) g/dL Hct 33.6 L (36.0-46.0) % MCV (80.0-98.0) fL MCH (27.0-32.0) pg MCHC (31.0-37.0) g/dL RDW Std Deviation (28.0-62.0) fl RDW Coeff of Eliza (11.0-15.0) % Plt Count (150-400) K/uL MPV (7.40-12.00) fL Neut % (Auto) (48.0-80.0) % Lymph % (Auto) (16.0-40.0) % [place] % (Auto) (0.0-15.0) % Eos % (Auto) (0.0-7.0) % Baso % (Auto) (0.0-1.5) % Neut # (Auto) (1.4-5.7) K/uL Lymph # (Auto) (0.6-2.4) K/uL [place] # (Auto) (0.0-0.8) K/uL Eos # (Auto) (0.0-0.7) K/uL Baso # (Auto) (0.0-0.1) K/uL Nucleated RBC % /100WBC Nucleated RBCs # K/uL Sodium 138 (136-146) mmol/L Potassium 4.3 (3.5-5.1) mmol/L Chloride 105 (98-110) mmol/L Carbon Dioxide 28 (21-31) mmol/L BUN 10 (6.0-23.0) mg/dL Creatinine 0.6 (0.6-1.5) mg/dL Est Cr Clr Drug Dosing 111.51 mL/min Estimated GFR (MDRD) > 60.0 ml/min Glucose 113 H (60-110) mg/dL Calcium 8.9 (8.8-10.8) mg/dL Magnesium 1.4 L (1.5-2.3) mEq/L Med Orders - Current: Current Medications Acetaminophen (Tylenol Extra Strength) 1,000 mg PO Q6H [facility] Last Admin: 05/08/17 13:35 Dose: Not Given Al Hydroxide/Mg Hydroxide (Mag-Al Plus) 30 ml PO Q4H PRN PRN Reason: indigestion Albuterol (Proventil Hfa) 0 gm INH ASDIRECTED PRN PRN Reason: Shortness of Breath Aspirin (Aspirin) 325 mg PO BID [facility] Last Admin: 05/08/17 13:35 Dose: Not Given Bisacodyl (Dulcolax) 10 mg RECTAL DAILY PRN PRN Reason: Constipation Celecoxib (Celebrex) 200 mg PO BID [facility] Last Admin: 10/24/17 13:34 Dose: Not Given Diphenhydramine HCl (Benadryl) 25 - 50 mg PO Q6H PRN PRN Reason: Itching Docusate Sodium (Colace) 100 mg PO BID [facility] Last Admin: 05/08/17 13:36 Dose: Not Given Famotidine (Pepcid) 40 mg PO DAILY [facility] Last Admin: 05/08/17 13:34 Dose: Not Given Metoprolol Succinate (Toprol Xl) 25 mg PO BEDTIME [facility] Last Admin: 05/08/17 13:35 Dose: Not Given Morphine Sulfate (Morphine) 1 - 3 mg IVPUSH Q3H PRN PRN Reason: Pain Multivitamins/Minerals (Thera M Plus) 1 tab PO DAILY [facility] Last Admin: 05/08/17 13:34 Dose: Not Given Ondansetron HCl (Zofran) 4 mg IVPUSH Q6H PRN PRN Reason: Nausea/Vomiting Oxycodone HCl (Oxycodone) 5 - 10 mg PO Q4H PRN PRN Reason: Pain Oxycodone HCl (Oxycontin) 20 mg PO Q12HR [facility] Last Admin: 05/08/17 13:35 Dose: Not Given Discontinued Medications Acetaminophen (Tylenol Extra Strength) 1,000 mg PO ONARRIVE [facility] Last Admin: 05/07/17 08:13 Dose: 1,000 mg Acetaminophen (Tylenol Extra Strength) 1,000 mg PO Q6H [facility] Al Hydroxide/Mg Hydroxide (Mag-Al Plus) 30 ml PO Q4H PRN PRN Reason: indigestion Aspirin (Aspirin) 325 mg PO BID [facility] Bisacodyl (Dulcolax) 10 mg RECTAL DAILY PRN PRN Reason: Constipation Celecoxib (Celebrex) 200 mg PO BID [facility] Diphenhydramine HCl (Benadryl) 25 - 50 mg PO Q6H PRN PRN Reason: Itching Docusate Sodium (Colace) 100 mg PO BID [facility] Famotidine (Pepcid) 40 mg IVPUSH ONARRIVE [facility] Last Admin: 05/07/17 08:16 Dose: 40 mg Famotidine (Pepcid) 40 mg PO DAILY [facility] Fentanyl (Sublimaze) Confirm Administered Dose 250 mcg .ROUTE .[facility]-MED ONE Stop: 05/07/17 08:52 Fentanyl (Sublimaze) 50 mcg IVPUSH Q5M PRN PRN Reason: Pain (severe 7-10) Stop: 05/08/17 10:23 Glycopyrrolate () Confirm Administered Dose 1 mg .ROUTE .STK-MED ONE Stop: 05/07/17 09:47 Ropivacaine 49.25 ml/Ketorolac Tromethamine 30 mg/Epinephrine HCl 0.5 mg/ Clonidine HCl 80 mcg/ Sodium Chloride 100 mls @ 50 mls/min INJECT ONETIME ONE Stop: 05/07/17 06:01 Lactated Ringer's (Ringers, Lactated) 1,000 mls @ 100 mls/hr IV ASDIRECTED [facility] Last Admin: 05/07/17 08:12 Dose: 100 mls/hr Clindamycin Phosphate 900 mg/ (Premix) 50 mls @ 100 mls/hr IV ONCALL [facility] Last Admin: 05/07/17 09:18 Dose: 100 mls/hr Ropivacaine 49.25 ml/Epinephrine HCl 0.5 mg/Clonidine HCl 80 mcg/ Sodium Chloride 100 mls @ 50 mls/min INJECT ONETIME ONE Stop: 05/07/17 07:43 Acetaminophen 1,000 mg/ Premix 100 mls @ 400 mls/hr IV Q6H [facility] Stop: 05/08/17 02:14 Last Admin: 05/08/17 13:37 Dose: Not Given Clindamycin Phosphate 900 mg/ (Premix) 50 mls @ 100 mls/hr IV Q8H [facility] Stop: 05/08/17 02:29 Last Admin: 05/08/17 13:36 Dose: Not Given Magnesium Sulfate 2 gm/ Premix 50 mls @ 50 mls/hr IV ONETIME ONE Stop: 05/07/17 16:37 Last Admin: 05/08/17 13:37 Dose: Not Given Magnesium Sulfate 4 gm/ Premix 100 mls @ 50 mls/hr IV ONETIME ONE Stop: 05/08/17 11:13 Last Admin: 05/08/17 13:34 Dose: Not Given Ketorolac Tromethamine (Toradol) 30 mg IVPUSH ONARRIVE [facility] Ketorolac Tromethamine (Toradol) 30 mg IVPUSH Q6H [facility] Stop: 05/08/17 09:00 Ketorolac Tromethamine (Toradol) 30 mg IVPUSH Q6H [facility] Stop: 05/08/17 05:01 Last Admin: 05/08/17 13:36 Dose: Not Given Lidocaine (Xylocaine-Mpf 2%) Confirm Administered Dose 5 ml .ROUTE .STK-MED ONE Stop: 05/07/17 08:51 Metoprolol Succinate (Toprol Xl) 25 mg PO BEDTIME [facility] Midazolam HCl (Versed 1 Mg/Ml) Confirm Administered Dose 2 mg .ROUTE .STK-MED ONE Stop: 05/07/17 08:52 Morphine Sulfate (Morphine) 1 - 3 mg IVPUSH Q3H PRN PRN Reason: Pain Non-Formulary Medication (Multivits-Minerals/Fa/Lycopene [One Daily Tablet]) 1 tab PO DAILY [facility] Ondansetron HCl (Zofran) Confirm Administered Dose 4 mg .ROUTE .STK-MED ONE Stop: 05/07/17 08:51 Oxycodone HCl (Oxycontin) 20 mg PO ONARRIVE [facility] Last Admin: 05/07/17 08:15 Dose: 20 mg Oxycodone HCl (Oxycodone) 5 - 10 mg PO Q4H PRN PRN Reason: Pain Oxycodone HCl (Oxycontin) 20 mg PO Q12HR [facility] Phenylephrine HCl (Phenylephrine In Ns 100 Mcg/Ml) Confirm Administered Dose 1 mg .ROUTE .STK-MED ONE Stop: 05/07/17 09:58 Propofol (Diprivan 20 Ml) Confirm Administered Dose 200 mg .ROUTE .STK-MED ONE Stop: 05/07/17 08:51 Scopolamine (Transderm-Scop) 1.5 mg TRDERM ONARRIVE [facility] Last Admin: 05/07/17 08:16 Dose: 1.5 mg Scopolamine (Transderm-Scop) Confirm Administered Dose 1.5 mg .ROUTE .STK-MED ONE Stop: 05/07/17 09:38 Tranexamic Acid (Cyklokapron) 4,000 mg IV SEECOMMENT [facility] Tranexamic Acid (Cyklokapron) Confirm Administered Dose 4,000 mg .ROUTE .STK- MED ONE Stop: 05/07/17 07:48 - Problem List Review Problem List Initiated/Reviewed/Updated: Yes - My Orders Last 24 Hours: Active Orders 24 hr Category Date Time Status Remove Chapman Catheter [Urinary Catheter Removal] [RC] Care 05/08/17 07:50 Active Per Unit Routine HEMOGLOBIN/HEMATOCRIT,HH [HEME] DAILY Lab 05/09/17 06:00 Ordered HEMOGLOBIN/HEMATOCRIT,HH [HEME] DAILY Lab 05/10/17 06:00 Ordered Acetaminophen [Tylenol Extra Strength] Med 05/08/17 08:00 Active 1,000 mg PO Q6H Aspirin Med 05/08/17 09:00 Active 325 mg PO BID Celecoxib [CeleBREX] Med 05/08/17 09:00 Active 200 mg PO BID Docusate Sodium [Colace] Med 05/07/17 21:00 Active 100 mg PO BID Famotidine [Pepcid] Med 05/08/17 09:00 Active 40 mg PO DAILY Metoprolol Succinate [Toprol XL] Med 05/07/17 21:00 Active 25 mg PO BEDTIME Multivitamins w-Iron/Ca/FA/Min [Thera M Plus] Med 05/08/17 09:00 Active 1 tab PO DAILY Ondansetron [Zofran] Med 05/07/17 14:04 Active 4 mg IVPUSH Q6H PRN oxyCODONE ER [OxyCONTIN] Med 05/07/17 21:00 Active 20 mg PO Q12HR Medication Orders Acetaminophen (Tylenol Extra Strength) 1,000 mg PO Q6H [facility] Last Admin: 05/08/17 13:35 Dose: Al Hydroxide/Mg Hydroxide (Mag-Al Plus) 30 ml PO Q4H PRN PRN Reason: indigestion Albuterol (Proventil Hfa) 0 gm INH ASDIRECTED PRN PRN Reason: Shortness of Breath Aspirin (Aspirin) 325 mg PO BID [facility] Last Admin: 05/08/17 13:35 Dose: Bisacodyl (Dulcolax) 10 mg RECTAL DAILY PRN PRN Reason: Constipation Celecoxib (Celebrex) 200 mg PO BID [facility] Last Admin: 05/08/17 13:34 Dose: Diphenhydramine HCl (Benadryl) 25 - 50 mg PO Q6H PRN PRN Reason: Itching Docusate Sodium (Colace) 100 mg PO BID [facility] Last Admin: 05/08/17 13:36 Dose: Admin: 05/08/17 13:36 Dose: Famotidine (Pepcid) 40 mg PO DAILY [facility] Last Admin: 05/08/17 13:34 Dose: Metoprolol Succinate (Toprol Xl) 25 mg PO BEDTIME [facility] Last Admin: 05/08/17 13:35 Dose: Morphine Sulfate (Morphine) 1 - 3 mg IVPUSH Q3H PRN PRN Reason: Pain Multivitamins/Minerals (Thera M Plus) 1 tab PO DAILY [facility] Last Admin: 05/08/17 13:34 Dose: Ondansetron HCl (Zofran) 4 mg IVPUSH Q6H PRN PRN Reason: Nausea/Vomiting Oxycodone HCl (Oxycodone) 5 - 10 mg PO Q4H PRN PRN Reason: Pain Oxycodone HCl (Oxycontin) 20 mg PO Q12HR [facility] Last Admin: 05/08/17 13:35 Dose: Admin: 05/08/17 13:35 Dose: - Plan Plan (Free Text/Narrative):: 1300 Patient seen and examined. Agree with above note. Patient continues to have quite a bit of nausea. She has not vomited at all today. She has not eaten much. Her pain has been fairly well controlled. She was up with physical therapy earlier. Hemoglobin stable. Exam of knee shows the dressing to be in place. She has no calf tenderness. AT/ EHL/gastroc 5/5. Sensation grossly intact. DP/PT pulses 2+. 1. Discontinue OxyContin and morphine, add Dilaudid for breakthrough pain only 2. Activity as tolerated 3. Possible discharge home tomorrow
[2017-05-08] MEDS ORDERED: Acetaminophen 500 MG Tab PO SCH (08:00)
[2017-05-08] MEDS ORDERED: Celecoxib 100 MG Cap PO SCH (09:00)
[2017-05-08] MEDS ORDERED: [UNRECOGNIZED DRUG - OTHER] PO SCH (09:00)
[2017-05-08] MEDS ORDERED: MULTIVITS MINERALS PO SCH (09:00)
[2017-05-08] MEDS ORDERED: Aspirin 325 MG Tab PO SCH (09:00)
[2017-05-08] MEDS ORDERED: Famotidine 20 MG Tab PO SCH (09:00)
[2017-05-08] MEDS ORDERED: LYCOPENE PO SCH (09:00)
[2017-05-08] MEDS ORDERED: Magnesium Sulfate/Water 4 GM in Premix Bag 1 BAG IV ONE (09:14)
--- NOTE | 2017-05-08 09:17 | PCM.CONSN ---
- General Info Date of Service: 05/08/17 Admission Dx/Problem (Free Text): Admission Diagnosis/Problem Admission Diagnosis/Problem Replacement of total knee joint Subjective Update: Doing well this morning, pain to R knee is better controlled this morning. Denies chest pain , palpitations or SOB. No concerns at this time Functional Status: Reports: Pain Controlled, Tolerating Diet, Ambulating - Review of Systems General: Reports: No Symptoms. Denies: Fever Pulmonary: Reports: No Symptoms. Denies: Shortness of Breath Cardiovascular: Reports: No Symptoms. Denies: Chest Pain, Palpitations Gastrointestinal: Reports: No Symptoms. Denies: Abdominal Pain, Nausea, Vomiting Psychiatric: Reports: No Symptoms. Denies: Confusion - Patient Data Vitals - Most Recent: Last Vital Signs Temp 98.2 F 05/08/17 05:20 Pulse 68 05/08/17 05:20 Resp 20 05/08/17 05:20 BP 110/59 L 05/08/17 05:20 Pulse Ox 95 05/08/17 05:20 Weight - Most Recent: 99.79 kg I&O - Last 24 Hours: Intake & Output 05/07/17 05/08/17 05/08/17 22:59 06:59 14:59 Intake Total 0 1003 Output Total 180 980 Balance -180 23 Lab Results Last 24 Hours: Laboratory Results - last 24 hr 05/07/17 05/07/17 05/08/17 Range/Units 14:32 14:32 04:33 WBC 6.03 7.73 (4.0-11.0) K/uL RBC 4.38 4.09 L (4.30-5.90) M/uL Hgb 11.7 L 10.8 L (12.0-16.0) g/dL Hct 35.5 L 33.6 L (36.0-46.0) % MCV 81.1 82.2 (80.0-98.0) fL MCH 26.7 L 26.4 L (27.0-32.0) pg MCHC 33.0 32.1 (31.0-37.0) g/dL RDW Std Deviation 36.4 37.9 (28.0-62.0) fl RDW Coeff of Eliza 13 13 (11.0-15.0) % Plt Count 227 219 (150-400) K/uL MPV 10.40 10.40 (7.40-12.00) fL Neut % (Auto) 67.5 80.3 H (48.0-80.0) % Lymph % (Auto) 25.2 10.7 L (16.0-40.0) % [place] % (Auto) 6.8 8.8 (0.0-15.0) % Eos % (Auto) 0.3 0.1 (0.0-7.0) % Baso % (Auto) 0.2 0.1 (0.0-1.5) % Neut # (Auto) 4.1 6.2 H (1.4-5.7) K/uL Lymph # (Auto) 1.5 0.8 (0.6-2.4) K/uL [place] # (Auto) 0.4 0.7 (0.0-0.8) K/uL Eos # (Auto) 0.0 0.0 (0.0-0.7) K/uL Baso # (Auto) 0.0 0.0 (0.0-0.1) K/uL Nucleated RBC % 0.0 0.0 /100WBC Nucleated RBCs # 0 0 K/uL Sodium 141 (136-146) mmol/L Potassium 3.9 (3.5-5.1) mmol/L Chloride 109 (98-110) mmol/L Carbon Dioxide 24 (21-31) mmol/L BUN 13 (6.0-23.0) mg/dL Creatinine 0.7 (0.6-1.5) mg/dL Est Cr Clr Drug Dosing 95.58 mL/min Estimated GFR (MDRD) > 60.0 ml/min Glucose 125 H (60-110) mg/dL Calcium 9.0 (8.8-10.8) mg/dL Magnesium 1.3 L (1.5-2.3) mEq/L 05/08/17 05/08/17 05/08/17 Range/Units 04:33 04:33 06:24 WBC (4.0-11.0) K/uL RBC (4.30-5.90) M/uL Hgb 10.7 L (12.0-16.0) g/dL Hct 33.6 L (36.0-46.0) % MCV (80.0-98.0) fL MCH (27.0-32.0) pg MCHC (31.0-37.0) g/dL RDW Std Deviation (28.0-62.0) fl RDW Coeff of Eliza (11.0-15.0) % Plt Count (150-400) K/uL MPV (7.40-12.00) fL Neut % (Auto) (48.0-80.0) % Lymph % (Auto) (16.0-40.0) % [place] % (Auto) (0.0-15.0) % Eos % (Auto) (0.0-7.0) % Baso % (Auto) (0.0-1.5) % Neut # (Auto) (1.4-5.7) K/uL Lymph # (Auto) (0.6-2.4) K/uL [place] # (Auto) (0.0-0.8) K/uL Eos # (Auto) (0.0-0.7) K/uL Baso # (Auto) (0.0-0.1) K/uL Nucleated RBC % /100WBC Nucleated RBCs # K/uL Sodium 138 (136-146) mmol/L Potassium 4.3 (3.5-5.1) mmol/L Chloride 105 (98-110) mmol/L Carbon Dioxide 28 (21-31) mmol/L BUN 10 (6.0-23.0) mg/dL Creatinine 0.6 (0.6-1.5) mg/dL Est Cr Clr Drug Dosing 111.51 mL/min Estimated GFR (MDRD) > 60.0 ml/min Glucose 113 H (60-110) mg/dL Calcium 8.9 (8.8-10.8) mg/dL Magnesium 1.4 L (1.5-2.3) mEq/L Med Orders - Current: Current Medications Acetaminophen (Tylenol Extra Strength) 1,000 mg PO Q6H [facility] Al Hydroxide/Mg Hydroxide (Mag-Al Plus) 30 ml PO Q4H PRN PRN Reason: indigestion Albuterol (Proventil Hfa) 0 gm INH ASDIRECTED PRN PRN Reason: Shortness of Breath Aspirin (Aspirin) 325 mg PO BID [facility] Bisacodyl (Dulcolax) 10 mg RECTAL DAILY PRN PRN Reason: Constipation Celecoxib (Celebrex) 200 mg PO BID [facility] Diphenhydramine HCl (Benadryl) 25 - 50 mg PO Q6H PRN PRN Reason: Itching Docusate Sodium (Colace) 100 mg PO BID [facility] Famotidine (Pepcid) 40 mg PO DAILY [facility] Metoprolol Succinate (Toprol Xl) 25 mg PO BEDTIME [facility] Morphine Sulfate (Morphine) 1 - 3 mg IVPUSH Q3H PRN PRN Reason: Pain Multivitamins/Minerals (Thera M Plus) 1 tab PO DAILY [facility] Ondansetron HCl (Zofran) 4 mg IVPUSH Q6H PRN PRN Reason: Nausea/Vomiting Oxycodone HCl (Oxycodone) 5 - 10 mg PO Q4H PRN PRN Reason: Pain Oxycodone HCl (Oxycontin) 20 mg PO Q12HR [facility] Discontinued Medications Acetaminophen (Tylenol Extra Strength) 1,000 mg PO ONARRIVE [facility] Last Admin: 05/07/17 08:13 Dose: 1,000 mg Acetaminophen (Tylenol Extra Strength) 1,000 mg PO Q6H [facility] Al Hydroxide/Mg Hydroxide (Mag-Al Plus) 30 ml PO Q4H PRN PRN Reason: indigestion Aspirin (Aspirin) 325 mg PO BID [facility] Bisacodyl (Dulcolax) 10 mg RECTAL DAILY PRN PRN Reason: Constipation Celecoxib (Celebrex) 200 mg PO BID [facility] Diphenhydramine HCl (Benadryl) 25 - 50 mg PO Q6H PRN PRN Reason: Itching Docusate Sodium (Colace) 100 mg PO BID [facility] Famotidine (Pepcid) 40 mg IVPUSH ONARRIVE [facility] Last Admin: 05/07/17 08:16 Dose: 40 mg Famotidine (Pepcid) 40 mg PO DAILY [facility] Fentanyl (Sublimaze) Confirm Administered Dose 250 mcg .ROUTE .STK-MED ONE Stop: 05/07/17 08:52 Fentanyl (Sublimaze) 50 mcg IVPUSH Q5M PRN PRN Reason: Pain (severe 7-10) Stop: 05/08/17 10:23 Glycopyrrolate () Confirm Administered Dose 1 mg .ROUTE .STK-MED ONE Stop: 05/07/17 09:47 Ropivacaine 49.25 ml/Ketorolac Tromethamine 30 mg/Epinephrine HCl 0.5 mg/ Clonidine HCl 80 mcg/ Sodium Chloride 100 mls @ 50 mls/min INJECT ONETIME ONE Stop: 05/07/17 06:01 Lactated Ringer's (Ringers, Lactated) 1,000 mls @ 100 mls/hr IV ASDIRECTED [facility] Last Admin: 05/07/17 08:12 Dose: 100 mls/hr Clindamycin Phosphate 900 mg/ (Premix) 50 mls @ 100 mls/hr IV ONCALL [facility] Last Admin: 05/07/17 09:18 Dose: 100 mls/hr Ropivacaine 49.25 ml/Epinephrine HCl 0.5 mg/Clonidine HCl 80 mcg/ Sodium Chloride 100 mls @ 50 mls/min INJECT ONETIME ONE Stop: 05/07/17 07:43 Acetaminophen 1,000 mg/ Premix 100 mls @ 400 mls/hr IV Q6H [facility] Stop: 05/08/17 02:14 Clindamycin Phosphate 900 mg/ (Premix) 50 mls @ 100 mls/hr IV Q8H [facility] Stop: 05/08/17 02:29 Magnesium Sulfate 2 gm/ Premix 50 mls @ 50 mls/hr IV ONETIME ONE Stop: 05/07/17 16:37 Ketorolac Tromethamine (Toradol) 30 mg IVPUSH ONARRIVE [facility] Ketorolac Tromethamine (Toradol) 30 mg IVPUSH Q6H [facility] Stop: 05/08/17 09:00 Ketorolac Tromethamine (Toradol) 30 mg IVPUSH Q6H [facility] Stop: 05/08/17 05:01 Lidocaine (Xylocaine-Mpf 2%) Confirm Administered Dose 5 ml .ROUTE .STK-MED ONE Stop: 05/07/17 08:51 Metoprolol Succinate (Toprol Xl) 25 mg PO BEDTIME [facility] Midazolam HCl (Versed 1 Mg/Ml) Confirm Administered Dose 2 mg .ROUTE .STK-MED ONE Stop: 05/07/17 08:52 Morphine Sulfate (Morphine) 1 - 3 mg IVPUSH Q3H PRN PRN Reason: Pain Non-Formulary Medication (Multivits-Minerals/Fa/Lycopene [One Daily Tablet]) 1 tab PO DAILY [facility] Ondansetron HCl (Zofran) Confirm Administered Dose 4 mg .ROUTE .STK-MED ONE Stop: 05/07/17 08:51 Oxycodone HCl (Oxycontin) 20 mg PO ONARRIVE [facility] Last Admin: 05/07/17 08:15 Dose: 20 mg Oxycodone HCl (Oxycodone) 5 - 10 mg PO Q4H PRN PRN Reason: Pain Oxycodone HCl (Oxycontin) 20 mg PO Q12HR [facility] Phenylephrine HCl (Phenylephrine In Ns 100 Mcg/Ml) Confirm Administered Dose 1 mg .ROUTE .STK-MED ONE Stop: 05/07/17 09:58 Propofol (Diprivan 20 Ml) Confirm Administered Dose 200 mg .ROUTE .STK-MED ONE Stop: 05/07/17 08:51 Scopolamine (Transderm-Scop) 1.5 mg TRDERM ONARRIVE [facility] Last Admin: 05/07/17 08:16 Dose: 1.5 mg Scopolamine (Transderm-Scop) Confirm Administered Dose 1.5 mg .ROUTE .STK-MED ONE Stop: 05/07/17 09:38 Tranexamic Acid (Cyklokapron) 4,000 mg IV SEECOMMENT [facility] Tranexamic Acid (Cyklokapron) Confirm Administered Dose 4,000 mg .ROUTE .STK- MED ONE Stop: 05/07/17 07:48 - Exam General: Alert, Oriented, Cooperative, No Acute Distress Lungs: Clear to Auscultation, Normal Respiratory Effort Cardiovascular: Regular Rate, Regular Rhythm, No Murmurs GI/Abdominal Exam: Normal Bowel Sounds, Soft, Non-Tender, No Organomegaly, No Distention, No Abnormal Bruit, No Mass, Pelvis Stable Wound/Incisions: Dressing Dry and Intact Neurological: No New Focal Deficit Psy/Mental Status: Alert, Normal Affect, Normal Mood Consult PN Assessment/Plan Procedures: Procedures ASSAY OF GONADOTROPIN ([facility]SH) (12/20/15) ASSAY OF GONADOTROPIN (LH) (12/20/15) ASSAY THYROID STIM HORMONE (12/09/14) CARDIOVASCULAR STRESS TEST (12/21/16) CHEST X-RAY 2VW FRONTAL&LATL (04/16/17) CHORIONIC GONADOTROPIN ASSAY (01/30/14) COMP SCREEN MAMMOGRAM ADD-ON (12/20/15) COMPLETE CBC W/AUTO DIFF WBC (04/16/17) COMPREHEN METABOLIC PANEL (05/27/15) ELECTROCARDIOGRAM TRACING (04/16/17) GLYCOSYLATED HEMOGLOBIN TEST (04/16/17) HPV HIGH-RISK TYPES (12/22/16) HT MUSCLE IMAGE SPECT SING (12/25/16) INFLUENZA ASSAY W/OPTIC (08/21/16) LIPID PANEL (12/09/14) MANUAL THERAPY 1/> REGIONS (04/13/14) METABOLIC PANEL TOTAL CA (04/16/17) MRI JOINT OF LWR EXTR W/DYE (02/04/14) PROTHROMBIN TIME (04/16/17) PT EVALUATION (03/12/14) ROUTINE VENIPUNCTURE (04/16/17) THERAPEUTIC EXERCISES (04/22/14) TTE W/DOPPLER COMPLETE (12/25/16) URINALYSIS AUTO W/SCOPE (04/27/17) URINE BACTERIA CULTURE (12/03/13) URINE CULTURE/COLONY COUNT (04/16/17) US EXAM BREAST(S) (01/13/14) X-RAY EXAM KNEE 4 OR MORE (07/26/16) (1) PVC (premature ventricular contraction) SNOMED Code(s): 27308759 Code(s): I49.3 - VENTRICULAR PREMATURE DEPOLARIZATION Priority: Low Current Visit: Yes Problem List Initiated/Reviewed/Updated: Yes My Orders Last 24 Hours: My Active Orders 05/08/17 09:14 Magnesium Sulfate/Water [Magnesium Sulfate 4 GM in Water 100 ML] 4 gm Premix Bag 1 bag IV ONETIME Plan: This 46 year old female admitted for R TKA with Dr. Santos. 1. S/p R TKA: per ortho. 2. Hx palpitations with PVCs: Continue Metoprolol, replace Magnesium today, 4 gm IV. VTE prophylaxis: when deemed appropriate by Ortho.
[2017-05-08] MEDS: Multivitamins with Iron/Calcium/Folic Acid/Minerals Tab PO SCH (13:34)
[2017-05-08] MEDS: Celecoxib 100 MG Cap PO SCH ×2 (13:34→20:48)
[2017-05-08] MEDS: Famotidine 20 MG Tab PO SCH (13:34)
[2017-05-08] MEDS: Acetaminophen 500 MG Tab PO SCH ×3 (13:35→20:48)
[2017-05-08] MEDS: Aspirin 325 MG Tab PO SCH ×2 (13:35→20:48)
[2017-05-08] MEDS: oxyCODONE ER 20 MG TAB.ER PO SCH (13:35)
[2017-05-08] MEDS: Metoprolol Succinate 25 MG Tab.ER PO SCH ×2 (13:35→20:49)
[2017-05-08] MEDS: Clindamycin Phosphate in D5W 900 MG in Premix Bag 1 BAG IV SCH ×2 (13:36)
[2017-05-08] MEDS: Ketorolac 30 MG/ML SDV IVPUSH SCH (13:36)
[2017-05-08] MEDS: Docusate Sodium 100 MG Cap PO SCH ×2 (13:36→20:49)
[2017-05-08] MEDS: Acetaminophen 1,000 MG in Premix Bag 1 BAG IV SCH (13:37)
[2017-05-08] MEDS ORDERED: HYDROmorphone 1 MG/ML Syringe IVPUSH PRN (13:45)
[2017-05-08] MEDS: Prochlorperazine 10 MG/2 ML SDV IVPUSH PRN ×2 (14:51→21:27)
[2017-05-08] MEDS: oxyCODONE 5 MG Tab PO PRN (23:19)
[2017-05-09] MEDS: Acetaminophen 500 MG Tab PO SCH ×3 (01:21→13:04)
[2017-05-09] MEDS: oxyCODONE 5 MG Tab PO PRN (05:02)
--- NOTE | 2017-05-09 07:34 | PCM.SURGPN ---
<Jose Rubio - Last Filed: 05/09/17 07:29> - General Info Date of Service: 05/09/17 Date of Surgery/Procedure: 05/07/17 POD#: 2 Post-Op Diagnosis: Total Right Knee Arthroplasty Functional Status: Reports: Pain Controlled, Ambulating, Urinating. Denies: Tolerating Diet Pain Score: 2 - Review of Systems General: Denies: Fever, Chills Pulmonary: Denies: Shortness of Breath, Cough Cardiovascular: Reports: Palpitations Gastrointestinal: Reports: Difficulty Swallowing (Dry mouth). Denies: Nausea, Vomiting Genitourinary: Denies: Dysuria Musculoskeletal: Reports: Joint Pain (Right Knee Pain well controlled) - Patient Data Vitals - Most Recent: Last Vital Signs Temp 36.3 C 05/09/17 04:00 Pulse 89 05/09/17 04:00 Resp 14 05/09/17 04:00 BP 119/68 05/09/17 04:00 Pulse Ox 98 05/09/17 04:00 Weight - Most Recent: 99.79 kg I&O - Last 24 Hours: Intake & Output 05/08/17 05/09/17 05/09/17 22:59 06:59 14:59 Intake Total 300 750 Output Total 1275 1800 Balance -975 -1050 Lab Results Last 24 Hrs: Laboratory Results - last 24 hr 05/08/17 05/09/17 Range/Units 04:33 06:12 Hgb 10.9 L (12.0-16.0) g/dL Hct 34.2 L (36.0-46.0) % Magnesium 1.4 L (1.5-2.3) mEq/L Med Orders - Current: Current Medications Acetaminophen (Tylenol Extra Strength) 1,000 mg PO Q6H [facility] Last Admin: 05/09/17 01:21 Dose: 1,000 mg Al Hydroxide/Mg Hydroxide (Mag-Al Plus) 30 ml PO Q4H PRN PRN Reason: indigestion Albuterol (Proventil Hfa) 0 gm INH ASDIRECTED PRN PRN Reason: Shortness of Breath Aspirin (Aspirin) 325 mg PO BID [facility] Last Admin: 05/08/17 20:48 Dose: 325 mg Bisacodyl (Dulcolax) 10 mg RECTAL DAILY PRN PRN Reason: Constipation Celecoxib (Celebrex) 200 mg PO BID [facility] Last Admin: 05/08/17 20:48 Dose: 200 mg Diphenhydramine HCl (Benadryl) 25 - 50 mg PO Q6H PRN PRN Reason: Itching Docusate Sodium (Colace) 100 mg PO BID [facility] Last Admin: 05/08/17 20:49 Dose: 100 mg Famotidine (Pepcid) 40 mg PO DAILY [facility] Last Admin: 05/08/17 13:34 Dose: Not Given Hydromorphone HCl (Dilaudid) 0.5 - 1 mg IVPUSH Q3H PRN PRN Reason: Pain Metoprolol Succinate (Toprol Xl) 25 mg PO BEDTIME [facility] Last Admin: 05/08/17 20:49 Dose: 25 mg Multivitamins/Minerals (Thera M Plus) 1 tab PO DAILY [facility] Last Admin: 05/08/17 13:34 Dose: Not Given Ondansetron HCl (Zofran) 4 mg IVPUSH Q6H PRN PRN Reason: Nausea/Vomiting Oxycodone HCl (Oxycodone) 5 - 10 mg PO Q4H PRN PRN Reason: Pain Last Admin: 05/09/17 05:02 Dose: 5 mg Prochlorperazine Edisylate (Compazine) 5 mg IVPUSH Q6H PRN PRN Reason: Nausea/Vomiting Last Admin: 05/08/17 21:27 Dose: 5 mg Discontinued Medications Acetaminophen (Tylenol Extra Strength) 1,000 mg PO ONARRIVE [facility] Last Admin: 05/07/17 08:13 Dose: 1,000 mg Acetaminophen (Tylenol Extra Strength) 1,000 mg PO Q6H [facility] Al Hydroxide/Mg Hydroxide (Mag-Al Plus) 30 ml PO Q4H PRN PRN Reason: indigestion Aspirin (Aspirin) 325 mg PO BID [facility] Bisacodyl (Dulcolax) 10 mg RECTAL DAILY PRN PRN Reason: Constipation Celecoxib (Celebrex) 200 mg PO BID [facility] Diphenhydramine HCl (Benadryl) 25 - 50 mg PO Q6H PRN PRN Reason: Itching Docusate Sodium (Colace) 100 mg PO BID [facility] Famotidine (Pepcid) 40 mg IVPUSH ONARRIVE [facility] Last Admin: 05/07/17 08:16 Dose: 40 mg Famotidine (Pepcid) 40 mg PO DAILY [facility] Fentanyl (Sublimaze) Confirm Administered Dose 250 mcg .ROUTE .STK-MED ONE Stop: 05/07/17 08:52 Fentanyl (Sublimaze) 50 mcg IVPUSH Q5M PRN PRN Reason: Pain (severe 7-10) Stop: 05/08/17 10:23 Glycopyrrolate () Confirm Administered Dose 1 mg .ROUTE .STK-MED ONE Stop: 05/07/17 09:47 Ropivacaine 49.25 ml/Ketorolac Tromethamine 30 mg/Epinephrine HCl 0.5 mg/ Clonidine HCl 80 mcg/ Sodium Chloride 100 mls @ 50 mls/min INJECT ONETIME ONE Stop: 05/07/17 06:01 Lactated Ringer's (Ringers, Lactated) 1,000 mls @ 100 mls/hr IV ASDIRECTED [facility] Last Admin: 05/07/17 08:12 Dose: 100 mls/hr Clindamycin Phosphate 900 mg/ (Premix) 50 mls @ 100 mls/hr IV ONCALL [facility] Last Admin: 05/07/17 09:18 Dose: 100 mls/hr Ropivacaine 49.25 ml/Epinephrine HCl 0.5 mg/Clonidine HCl 80 mcg/ Sodium Chloride 100 mls @ 50 mls/min INJECT ONETIME ONE Stop: 05/07/17 07:43 Acetaminophen 1,000 mg/ Premix 100 mls @ 400 mls/hr IV Q6H [facility] Stop: 05/08/17 02:14 Last Admin: 05/08/17 13:37 Dose: Not Given Clindamycin Phosphate 900 mg/ (Premix) 50 mls @ 100 mls/hr IV Q8H [facility] Stop: 05/08/17 02:29 Last Admin: 05/08/17 13:36 Dose: Not Given Magnesium Sulfate 2 gm/ Premix 50 mls @ 50 mls/hr IV ONETIME ONE Stop: 05/07/17 16:37 Last Admin: 05/08/17 13:37 Dose: Not Given Magnesium Sulfate 4 gm/ Premix 100 mls @ 50 mls/hr IV ONETIME ONE Stop: 05/08/17 11:13 Last Admin: 05/08/17 13:34 Dose: Not Given Ketorolac Tromethamine (Toradol) 30 mg IVPUSH ONARRIVE [facility] Ketorolac Tromethamine (Toradol) 30 mg IVPUSH Q6H [facility] Stop: 05/08/17 09:00 Ketorolac Tromethamine (Toradol) 30 mg IVPUSH Q6H [facility] Stop: 05/08/17 05:01 Last Admin: 05/08/17 13:36 Dose: Not Given Lidocaine (Xylocaine-Mpf 2%) Confirm Administered Dose 5 ml .ROUTE .STK-MED ONE Stop: 05/07/17 08:51 Metoprolol Succinate (Toprol Xl) 25 mg PO BEDTIME [facility] Midazolam HCl (Versed 1 Mg/Ml) Confirm Administered Dose 2 mg .ROUTE .STK-MED ONE Stop: 05/07/17 08:52 Morphine Sulfate (Morphine) 1 - 3 mg IVPUSH Q3H PRN PRN Reason: Pain Morphine Sulfate (Morphine) 1 - 3 mg IVPUSH Q3H PRN PRN Reason: Pain Non-Formulary Medication (Multivits-Minerals/Fa/Lycopene [One Daily Tablet]) 1 tab PO DAILY [facility] Ondansetron HCl (Zofran) Confirm Administered Dose 4 mg .ROUTE .STK-MED ONE Stop: 05/07/17 08:51 Oxycodone HCl (Oxycontin) 20 mg PO ONARRIVE [facility] Last Admin: 05/07/17 08:15 Dose: 20 mg Oxycodone HCl (Oxycodone) 5 - 10 mg PO Q4H PRN PRN Reason: Pain Oxycodone HCl (Oxycontin) 20 mg PO Q12HR [facility] Oxycodone HCl (Oxycontin) 20 mg PO Q12HR [facility] Last Admin: 05/08/17 13:35 Dose: Not Given Phenylephrine HCl (Phenylephrine In Ns 100 Mcg/Ml) Confirm Administered Dose 1 mg .ROUTE .STK-MED ONE Stop: 05/07/17 09:58 Propofol (Diprivan 20 Ml) Confirm Administered Dose 200 mg .ROUTE .STK-MED ONE Stop: 05/07/17 08:51 Scopolamine (Transderm-Scop) 1.5 mg TRDERM ONARRIVE [facility] Last Admin: 05/07/17 08:16 Dose: 1.5 mg Scopolamine (Transderm-Scop) Confirm Administered Dose 1.5 mg .ROUTE .STK-MED ONE Stop: 05/07/17 09:38 Tranexamic Acid (Cyklokapron) 4,000 mg IV SEECOMMENT [facility] Tranexamic Acid (Cyklokapron) Confirm Administered Dose 4,000 mg .ROUTE .STK- MED ONE Stop: 05/07/17 07:48 - Exam Wound/Incisions: Dressing Dry and Intact Quality Assessment: No: Supplemental Oxygen, Urine Catheter General: Alert, Oriented, Cooperative, No Acute Distress Lungs: Clear to Auscultation Cardiovascular: Regular Rate GI/Abdominal Exam: Soft, Non-Tender Extremities: Other (Right knee dressing C/D/I, Right foot warm, pink, cap refill < 2 sec) Skin: Warm, Dry Neurological: No New Focal Deficit Psy/Mental Status: Alert, Normal Affect, Normal Mood - Problem List Review Problem List Initiated/Reviewed/Updated: Yes - My Orders Last 24 Hours: Active Orders 24 hr Category Date Time Status Remove Chapman Catheter [Urinary Catheter Removal] [RC] Care 05/08/17 07:50 Active Per Unit Routine BASIC METABOLIC PANEL,BMP [CHEM] Routine Lab 05/09/17 07:27 Ordered HEMOGLOBIN/HEMATOCRIT,HH [HEME] DAILY Lab 05/10/17 06:00 Ordered MAGNESIUM [CHEM] Routine Lab 05/09/17 07:27 Ordered Acetaminophen [Tylenol Extra Strength] Med 05/08/17 08:00 Active 1,000 mg PO Q6H Aspirin Med 05/08/17 09:00 Active 325 mg PO BID Celecoxib [CeleBREX] Med 05/08/17 09:00 Active 200 mg PO BID Famotidine [Pepcid] Med 05/08/17 09:00 Active 40 mg PO DAILY HYDROmorphone [Dilaudid] Med 05/08/17 13:45 Active 0.5 - 1 mg IVPUSH Q3H PRN Multivitamins w-Iron/Ca/FA/Min [Thera M Plus] Med 05/08/17 09:00 Active 1 tab PO DAILY Prochlorperazine [Compazine] Med 05/08/17 13:49 Active 5 mg IVPUSH Q6H PRN Medication Orders Acetaminophen (Tylenol Extra Strength) 1,000 mg PO Q6H [facility] Last Admin: 05/09/17 01:21 Dose: 1,000 mg Admin: 05/08/17 20:48 Dose: 1,000 mg Admin: 05/08/17 13:53 Dose: 1,000 mg Admin: 05/08/17 13:35 Dose: Al Hydroxide/Mg Hydroxide (Mag-Al Plus) 30 ml PO Q4H PRN PRN Reason: indigestion Albuterol (Proventil Hfa) 0 gm INH ASDIRECTED PRN PRN Reason: Shortness of Breath Aspirin (Aspirin) 325 mg PO BID [facility] Last Admin: 05/08/17 20:48 Dose: 325 mg Admin: 05/08/17 13:35 Dose: Bisacodyl (Dulcolax) 10 mg RECTAL DAILY PRN PRN Reason: Constipation Celecoxib (Celebrex) 200 mg PO BID [facility] Last Admin: 05/08/17 20:48 Dose: 200 mg Admin: 05/08/17 13:34 Dose: Diphenhydramine HCl (Benadryl) 25 - 50 mg PO Q6H PRN PRN Reason: Itching Docusate Sodium (Colace) 100 mg PO BID [facility] Last Admin: 05/08/17 20:49 Dose: 100 mg Admin: 05/08/17 13:36 Dose: Admin: 05/08/17 13:36 Dose: Famotidine (Pepcid) 40 mg PO DAILY [facility] Last Admin: 05/08/17 13:34 Dose: Hydromorphone HCl (Dilaudid) 0.5 - 1 mg IVPUSH Q3H PRN PRN Reason: Pain Metoprolol Succinate (Toprol Xl) 25 mg PO BEDTIME [facility] Last Admin: 05/08/17 20:49 Dose: 25 mg Admin: 05/08/17 13:35 Dose: Multivitamins/Minerals (Thera M Plus) 1 tab PO DAILY [facility] Last Admin: 05/08/17 13:34 Dose: Ondansetron HCl (Zofran) 4 mg IVPUSH Q6H PRN PRN Reason: Nausea/Vomiting Oxycodone HCl (Oxycodone) 5 - 10 mg PO Q4H PRN PRN Reason: Pain Last Admin: 05/09/17 05:02 Dose: 5 mg Admin: 05/08/17 23:19 Dose: 5 mg Prochlorperazine Edisylate (Compazine) 5 mg IVPUSH Q6H PRN PRN Reason: Nausea/Vomiting Last Admin: 05/08/17 21:27 Dose: 5 mg Admin: 05/08/17 14:51 Dose: 5 mg - Assessment Assessment (Free Text/Narrative):: Ms Perez is POD 2 right total knee arthroplasty, nausea better controlled today, dizziness improved, voiding after chapman removal, ambulating with staff and FWW, denies fevers, chills, chest pain, is having palpitations which she has a chronic history of, denies shortness of breath. Dressing is C/D/I, sensation to foot intact, pulses palpable, skin warm and pink. - Plan Plan (Free Text/Narrative):: Anticipate discharge home today pending patient being seen by Therapies and tolerance of diet. <Maria M Santos - Last Filed: 05/09/17 11:53> - Patient Data Vitals - Most Recent: Last Vital Signs Temp 98.8 F 05/09/17 08:00 Pulse 71 05/09/17 08:00 Resp 17 05/09/17 08:00 BP 117/63 05/09/17 08:00 Pulse Ox 97 05/09/17 08:00 I&O - Last 24 Hours: Intake & Output 05/08/17 05/09/17 05/09/17 22:59 06:59 14:59 Intake Total 300 750 Output Total 1275 1800 Balance -975 -1050 Lab Results Last 24 Hrs: Laboratory Results - last 24 hr 05/09/17 05/09/17 Range/Units 06:12 06:12 Hgb 10.9 L (12.0-16.0) g/dL Hct 34.2 L (36.0-46.0) % Sodium 139 (136-146) mmol/L Potassium 3.9 (3.5-5.1) mmol/L Chloride 105 (98-110) mmol/L Carbon Dioxide 25 (21-31) mmol/L BUN 6 (6.0-23.0) mg/dL Creatinine 0.6 (0.6-1.5) mg/dL Est Cr Clr Drug Dosing 111.51 mL/min Estimated GFR (MDRD) > 60.0 ml/min Glucose 100 (60-110) mg/dL Calcium 9.2 (8.8-10.8) mg/dL Magnesium 1.4 L (1.5-2.3) mEq/L Med Orders - Current: Current Medications Acetaminophen (Tylenol Extra Strength) 1,000 mg PO Q6H [facility] Last Admin: 05/09/17 08:17 Dose: 1,000 mg Al Hydroxide/Mg Hydroxide (Mag-Al Plus) 30 ml PO Q4H PRN PRN Reason: indigestion Albuterol (Proventil Hfa) 0 gm INH ASDIRECTED PRN PRN Reason: Shortness of Breath Aspirin (Aspirin) 325 mg PO BID [facility] Last Admin: 05/09/17 08:18 Dose: 325 mg Bisacodyl (Dulcolax) 10 mg RECTAL DAILY PRN PRN Reason: Constipation Celecoxib (Celebrex) 200 mg PO BID [facility] Last Admin: 05/09/17 08:16 Dose: 200 mg Diphenhydramine HCl (Benadryl) 25 - 50 mg PO Q6H PRN PRN Reason: Itching Docusate Sodium (Colace) 100 mg PO BID [facility] Last Admin: 05/09/17 08:18 Dose: 100 mg Famotidine (Pepcid) 40 mg PO DAILY [facility] Last Admin: 05/09/17 08:17 Dose: 40 mg Hydromorphone HCl (Dilaudid) 0.5 - 1 mg IVPUSH Q3H PRN PRN Reason: Pain Metoprolol Succinate (Toprol Xl) 25 mg PO BEDTIME [facility] Last Admin: 05/08/17 20:49 Dose: 25 mg Multivitamins/Minerals (Thera M Plus) 1 tab PO DAILY [facility] Last Admin: 05/09/17 08:18 Dose: 1 tab Ondansetron HCl (Zofran) 4 mg IVPUSH Q6H PRN PRN Reason: Nausea/Vomiting Oxycodone HCl (Oxycodone) 5 - 10 mg PO Q4H PRN PRN Reason: Pain Last Admin: 05/09/17 05:02 Dose: 5 mg Prochlorperazine Edisylate (Compazine) 5 mg IVPUSH Q6H PRN PRN Reason: Nausea/Vomiting Last Admin: 05/08/17 21:27 Dose: 5 mg Discontinued Medications Acetaminophen (Tylenol Extra Strength) 1,000 mg PO ONARRIVE [facility] Last Admin: 05/07/17 08:13 Dose: 1,000 mg Acetaminophen (Tylenol Extra Strength) 1,000 mg PO Q6H [facility] Al Hydroxide/Mg Hydroxide (Mag-Al Plus) 30 ml PO Q4H PRN PRN Reason: indigestion Aspirin (Aspirin) 325 mg PO BID [facility] Bisacodyl (Dulcolax) 10 mg RECTAL DAILY PRN PRN Reason: Constipation Celecoxib (Celebrex) 200 mg PO BID [facility] Diphenhydramine HCl (Benadryl) 25 - 50 mg PO Q6H PRN PRN Reason: Itching Docusate Sodium (Colace) 100 mg PO BID [facility] Famotidine (Pepcid) 40 mg IVPUSH ONARRIVE [facility] Last Admin: 05/07/17 08:16 Dose: 40 mg Famotidine (Pepcid) 40 mg PO DAILY [facility] Fentanyl (Sublimaze) Confirm Administered Dose 250 mcg .ROUTE .STK-MED ONE Stop: 05/07/17 08:52 Fentanyl (Sublimaze) 50 mcg IVPUSH Q5M PRN PRN Reason: Pain (severe 7-10) Stop: 05/08/17 10:23 Glycopyrrolate () Confirm Administered Dose 1 mg .ROUTE .STK-MED ONE Stop: 05/07/17 09:47 Ropivacaine 49.25 ml/Ketorolac Tromethamine 30 mg/Epinephrine HCl 0.5 mg/ Clonidine HCl 80 mcg/ Sodium Chloride 100 mls @ 50 mls/min INJECT ONETIME ONE Stop: 05/07/17 06:01 Lactated Ringer's (Ringers, Lactated) 1,000 mls @ 100 mls/hr IV ASDIRECTED [facility] Last Admin: 05/07/17 08:12 Dose: 100 mls/hr Clindamycin Phosphate 900 mg/ (Premix) 50 mls @ 100 mls/hr IV ONCALL [facility] Last Admin: 05/07/17 09:18 Dose: 100 mls/hr Ropivacaine 49.25 ml/Epinephrine HCl 0.5 mg/Clonidine HCl 80 mcg/ Sodium Chloride 100 mls @ 50 mls/min INJECT ONETIME ONE Stop: 05/07/17 07:43 Acetaminophen 1,000 mg/ Premix 100 mls @ 400 mls/hr IV Q6H [facility] Stop: 05/08/17 02:14 Last Admin: 05/08/17 13:37 Dose: Not Given Clindamycin Phosphate 900 mg/ (Premix) 50 mls @ 100 mls/hr IV Q8H [facility] Stop: 05/08/17 02:29 Last Admin: 05/08/17 13:36 Dose: Not Given Magnesium Sulfate 2 gm/ Premix 50 mls @ 50 mls/hr IV ONETIME ONE Stop: 05/07/17 16:37 Last Admin: 05/08/17 13:37 Dose: Not Given Magnesium Sulfate 4 gm/ Premix 100 mls @ 50 mls/hr IV ONETIME ONE Stop: 05/08/17 11:13 Last Admin: 05/08/17 13:34 Dose: Not Given Magnesium Sulfate 4 gm/ Premix 100 mls @ 50 mls/hr IV ONETIME ONE Stop: 05/09/17 11:15 Last Admin: 05/09/17 09:47 Dose: 50 mls/hr Ketorolac Tromethamine (Toradol) 30 mg IVPUSH ONARRIVE [facility] Ketorolac Tromethamine (Toradol) 30 mg IVPUSH Q6H [facility] Stop: 05/08/17 09:00 Ketorolac Tromethamine (Toradol) 30 mg IVPUSH Q6H [facility] Stop: 05/08/17 05:01 Last Admin: 05/08/17 13:36 Dose: Not Given Lidocaine (Xylocaine-Mpf 2%) Confirm Administered Dose 5 ml .ROUTE .STK-MED ONE Stop: 05/07/17 08:51 Metoprolol Succinate (Toprol Xl) 25 mg PO BEDTIME [facility] Midazolam HCl (Versed 1 Mg/Ml) Confirm Administered Dose 2 mg .ROUTE .STK-MED ONE Stop: 05/07/17 08:52 Morphine Sulfate (Morphine) 1 - 3 mg IVPUSH Q3H PRN PRN Reason: Pain Morphine Sulfate (Morphine) 1 - 3 mg IVPUSH Q3H PRN PRN Reason: Pain Non-Formulary Medication (Multivits-Minerals/Fa/Lycopene [One Daily Tablet]) 1 tab PO DAILY [facility] Ondansetron HCl (Zofran) Confirm Administered Dose 4 mg .ROUTE .STK-MED ONE Stop: 05/07/17 08:51 Oxycodone HCl (Oxycontin) 20 mg PO ONARRIVE [facility] Last Admin: 05/07/17 08:15 Dose: 20 mg Oxycodone HCl (Oxycodone) 5 - 10 mg PO Q4H PRN PRN Reason: Pain Oxycodone HCl (Oxycontin) 20 mg PO Q12HR [facility] Oxycodone HCl (Oxycontin) 20 mg PO Q12HR [facility] Last Admin: 05/08/17 13:35 Dose: Not Given Phenylephrine HCl (Phenylephrine In Ns 100 Mcg/Ml) Confirm Administered Dose 1 mg .ROUTE .STK-MED ONE Stop: 05/07/17 09:58 Propofol (Diprivan 20 Ml) Confirm Administered Dose 200 mg .ROUTE .STK-MED ONE Stop: 05/07/17 08:51 Scopolamine (Transderm-Scop) 1.5 mg TRDERM ONARRIVE [facility] Last Admin: 05/07/17 08:16 Dose: 1.5 mg Scopolamine (Transderm-Scop) Confirm Administered Dose 1.5 mg .ROUTE .STK-MED ONE Stop: 05/07/17 09:38 Tranexamic Acid (Cyklokapron) 4,000 mg IV SEECOMMENT [facility] Tranexamic Acid (Cyklokapron) Confirm Administered Dose 4,000 mg .ROUTE .STK- MED ONE Stop: 05/07/17 07:48 - My Orders Last 24 Hours: Active Orders 24 hr Category Date Time Status HEMOGLOBIN/HEMATOCRIT,HH [HEME] DAILY Lab 05/10/17 06:00 Ordered HYDROmorphone [Dilaudid] Med 05/08/17 13:45 Active 0.5 - 1 mg IVPUSH Q3H PRN Prochlorperazine [Compazine] Med 05/08/17 13:49 Active 5 mg IVPUSH Q6H PRN Medication Orders Acetaminophen (Tylenol Extra Strength) 1,000 mg PO Q6H [facility] Last Admin: 05/09/17 08:17 Dose: 1,000 mg Admin: 05/09/17 01:21 Dose: 1,000 mg Admin: 05/08/17 20:48 Dose: 1,000 mg Admin: 05/08/17 13:53 Dose: 1,000 mg Admin: 05/08/17 13:35 Dose: Al Hydroxide/Mg Hydroxide (Mag-Al Plus) 30 ml PO Q4H PRN PRN Reason: indigestion Albuterol (Proventil Hfa) 0 gm INH ASDIRECTED PRN PRN Reason: Shortness of Breath Aspirin (Aspirin) 325 mg PO BID [facility] Last Admin: 05/09/17 08:18 Dose: 325 mg Admin: 05/08/17 20:48 Dose: 325 mg Admin: 05/08/17 13:35 Dose: Bisacodyl (Dulcolax) 10 mg RECTAL DAILY PRN PRN Reason: Constipation Celecoxib (Celebrex) 200 mg PO BID [facility] Last Admin: 05/09/17 08:16 Dose: 200 mg Admin: 05/08/17 20:48 Dose: 200 mg Admin: 05/08/17 13:34 Dose: Diphenhydramine HCl (Benadryl) 25 - 50 mg PO Q6H PRN PRN Reason: Itching Docusate Sodium (Colace) 100 mg PO BID [facility] Last Admin: 05/09/17 08:18 Dose: 100 mg Admin: 05/08/17 20:49 Dose: 100 mg Admin: 05/08/17 13:36 Dose: Admin: 05/08/17 13:36 Dose: Famotidine (Pepcid) 40 mg PO DAILY [facility] Last Admin: 05/09/17 08:17 Dose: 40 mg Admin: 05/08/17 13:34 Dose: Hydromorphone HCl (Dilaudid) 0.5 - 1 mg IVPUSH Q3H PRN PRN Reason: Pain Metoprolol Succinate (Toprol Xl) 25 mg PO BEDTIME [facility] Last Admin: 05/08/17 20:49 Dose: 25 mg Admin: 05/08/17 13:35 Dose: Multivitamins/Minerals (Thera M Plus) 1 tab PO DAILY [facility] Last Admin: 05/09/17 08:18 Dose: 1 tab Admin: 05/08/17 13:34 Dose: Ondansetron HCl (Zofran) 4 mg IVPUSH Q6H PRN PRN Reason: Nausea/Vomiting Oxycodone HCl (Oxycodone) 5 - 10 mg PO Q4H PRN PRN Reason: Pain Last Admin: 05/09/17 05:02 Dose: 5 mg Admin: 05/08/17 23:19 Dose: 5 mg Prochlorperazine Edisylate (Compazine) 5 mg IVPUSH Q6H PRN PRN Reason: Nausea/Vomiting Last Admin: 05/08/17 21:27 Dose: 5 mg Admin: 05/08/17 14:51 Dose: 5 mg - Plan Plan (Free Text/Narrative):: 1030 Patient seen and examined. Agree with above. patient feeling much better today. Nausea resolved. Has been up with PT. hgb stable. pain well controlled. Dressing dry and intact. NVI. will plan to discharge home today. continue outpatient PT. Follow up as arranged. Advised to call if questions/concerns. Patient agrees with plan.
[2017-05-09 07:52] LABS: CHLORIDE,CL 105 mmol/L (98-110); SODIUM,NA 139 mmol/L (136-146)
[2017-05-09] MEDS: Celecoxib 100 MG Cap PO SCH (08:16)
[2017-05-09] MEDS: Famotidine 20 MG Tab PO SCH (08:17)
[2017-05-09] MEDS: Docusate Sodium 100 MG Cap PO SCH (08:18)
[2017-05-09] MEDS: Aspirin 325 MG Tab PO SCH (08:18)
[2017-05-09] MEDS: Multivitamins with Iron/Calcium/Folic Acid/Minerals Tab PO SCH (08:18)
[2017-05-09] MEDS ORDERED: Magnesium Sulfate/Water 4 GM in Premix Bag 1 BAG IV ONE (09:16)
--- NOTE | 2017-05-09 09:20 | PCM.CONSN ---
- General Info Date of Service: 05/09/17 Admission Dx/Problem (Free Text): Admission Diagnosis/Problem Admission Diagnosis/Problem Replacement of total knee joint Subjective Update: Feeling much better today, pain is well controlled. Having intermittent palpitations. No chest pain or SOB. Functional Status: Reports: Pain Controlled, Tolerating Diet, Ambulating, Urinating - Review of Systems General: Reports: No Symptoms. Denies: Fever Pulmonary: Reports: No Symptoms. Denies: Shortness of Breath, Pleuritic Chest Pain, Cough, Sputum Cardiovascular: Reports: Palpitations. Denies: Chest Pain, Edema, Lightheadedness Gastrointestinal: Reports: No Symptoms. Denies: Abdominal Pain, Nausea, Vomiting Skin: Reports: No Symptoms Neurological: Reports: No Symptoms Psychiatric: Reports: No Symptoms - Patient Data Vitals - Most Recent: Last Vital Signs Temp 97.4 F 05/09/17 04:00 Pulse 89 05/09/17 04:00 Resp 14 05/09/17 04:00 BP 119/68 05/09/17 04:00 Pulse Ox 98 05/09/17 04:00 Weight - Most Recent: 99.79 kg I&O - Last 24 Hours: Intake & Output 05/08/17 05/09/17 05/09/17 22:59 06:59 14:59 Intake Total 300 750 Output Total 1275 1800 Balance -975 -1050 Lab Results Last 24 Hours: Laboratory Results - last 24 hr 05/09/17 05/09/17 Range/Units 06:12 06:12 Hgb 10.9 L (12.0-16.0) g/dL Hct 34.2 L (36.0-46.0) % Sodium 139 (136-146) mmol/L Potassium 3.9 (3.5-5.1) mmol/L Chloride 105 (98-110) mmol/L Carbon Dioxide 25 (21-31) mmol/L BUN 6 (6.0-23.0) mg/dL Creatinine 0.6 (0.6-1.5) mg/dL Est Cr Clr Drug Dosing 111.51 mL/min Estimated GFR (MDRD) > 60.0 ml/min Glucose 100 (60-110) mg/dL Calcium 9.2 (8.8-10.8) mg/dL Magnesium 1.4 L (1.5-2.3) mEq/L Med Orders - Current: Current Medications Acetaminophen (Tylenol Extra Strength) 1,000 mg PO Q6H [facility] Last Admin: 05/09/17 08:17 Dose: 1,000 mg Al Hydroxide/Mg Hydroxide (Mag-Al Plus) 30 ml PO Q4H PRN PRN Reason: indigestion Albuterol (Proventil Hfa) 0 gm INH ASDIRECTED PRN PRN Reason: Shortness of Breath Aspirin (Aspirin) 325 mg PO BID [facility] Last Admin: 05/09/17 08:18 Dose: 325 mg Bisacodyl (Dulcolax) 10 mg RECTAL DAILY PRN PRN Reason: Constipation Celecoxib (Celebrex) 200 mg PO BID [facility] Last Admin: 05/09/17 08:16 Dose: 200 mg Diphenhydramine HCl (Benadryl) 25 - 50 mg PO Q6H PRN PRN Reason: Itching Docusate Sodium (Colace) 100 mg PO BID [facility] Last Admin: 05/09/17 08:18 Dose: 100 mg Famotidine (Pepcid) 40 mg PO DAILY [facility] Last Admin: 05/09/17 08:17 Dose: 40 mg Hydromorphone HCl (Dilaudid) 0.5 - 1 mg IVPUSH Q3H PRN PRN Reason: Pain Magnesium Sulfate 4 gm/ Premix 100 mls @ 50 mls/hr IV ONETIME ONE Stop: 05/09/17 11:15 Metoprolol Succinate (Toprol Xl) 25 mg PO BEDTIME [facility] Last Admin: 05/08/17 20:49 Dose: 25 mg Multivitamins/Minerals (Thera M Plus) 1 tab PO DAILY [facility] Last Admin: 05/09/17 08:18 Dose: 1 tab Ondansetron HCl (Zofran) 4 mg IVPUSH Q6H PRN PRN Reason: Nausea/Vomiting Oxycodone HCl (Oxycodone) 5 - 10 mg PO Q4H PRN PRN Reason: Pain Last Admin: 05/09/17 05:02 Dose: 5 mg Prochlorperazine Edisylate (Compazine) 5 mg IVPUSH Q6H PRN PRN Reason: Nausea/Vomiting Last Admin: 05/08/17 21:27 Dose: 5 mg Discontinued Medications Acetaminophen (Tylenol Extra Strength) 1,000 mg PO ONARRIVE [facility] Last Admin: 05/07/17 08:13 Dose: 1,000 mg Acetaminophen (Tylenol Extra Strength) 1,000 mg PO Q6H [facility] Al Hydroxide/Mg Hydroxide (Mag-Al Plus) 30 ml PO Q4H PRN PRN Reason: indigestion Aspirin (Aspirin) 325 mg PO BID [facility] Bisacodyl (Dulcolax) 10 mg RECTAL DAILY PRN PRN Reason: Constipation Celecoxib (Celebrex) 200 mg PO BID [facility] Diphenhydramine HCl (Benadryl) 25 - 50 mg PO Q6H PRN PRN Reason: Itching Docusate Sodium (Colace) 100 mg PO BID [facility] Famotidine (Pepcid) 40 mg IVPUSH ONARRIVE [facility] Last Admin: 05/07/17 08:16 Dose: 40 mg Famotidine (Pepcid) 40 mg PO DAILY [facility] Fentanyl (Sublimaze) Confirm Administered Dose 250 mcg .ROUTE .STK-MED ONE Stop: 05/07/17 08:52 Fentanyl (Sublimaze) 50 mcg IVPUSH Q5M PRN PRN Reason: Pain (severe 7-10) Stop: 05/08/17 10:23 Glycopyrrolate () Confirm Administered Dose 1 mg .ROUTE .STK-MED ONE Stop: 05/07/17 09:47 Ropivacaine 49.25 ml/Ketorolac Tromethamine 30 mg/Epinephrine HCl 0.5 mg/ Clonidine HCl 80 mcg/ Sodium Chloride 100 mls @ 50 mls/min INJECT ONETIME ONE Stop: 05/07/17 06:01 Lactated Ringer's (Ringers, Lactated) 1,000 mls @ 100 mls/hr IV ASDIRECTED [facility] Last Admin: 05/07/17 08:12 Dose: 100 mls/hr Clindamycin Phosphate 900 mg/ (Premix) 50 mls @ 100 mls/hr IV ONCALL [facility] Last Admin: 05/07/17 09:18 Dose: 100 mls/hr Ropivacaine 49.25 ml/Epinephrine HCl 0.5 mg/Clonidine HCl 80 mcg/ Sodium Chloride 100 mls @ 50 mls/min INJECT ONETIME ONE Stop: 05/07/17 07:43 Acetaminophen 1,000 mg/ Premix 100 mls @ 400 mls/hr IV Q6H [facility] Stop: 05/08/17 02:14 Last Admin: 05/08/17 13:37 Dose: Not Given Clindamycin Phosphate 900 mg/ (Premix) 50 mls @ 100 mls/hr IV Q8H [facility] Stop: 05/08/17 02:29 Last Admin: 05/08/17 13:36 Dose: Not Given Magnesium Sulfate 2 gm/ Premix 50 mls @ 50 mls/hr IV ONETIME ONE Stop: 05/07/17 16:37 Last Admin: 05/08/17 13:37 Dose: Not Given Magnesium Sulfate 4 gm/ Premix 100 mls @ 50 mls/hr IV ONETIME ONE Stop: 05/08/17 11:13 Last Admin: 05/08/17 13:34 Dose: Not Given Ketorolac Tromethamine (Toradol) 30 mg IVPUSH ONARRIVE [facility] Ketorolac Tromethamine (Toradol) 30 mg IVPUSH Q6H [facility] Stop: 05/08/17 09:00 Ketorolac Tromethamine (Toradol) 30 mg IVPUSH Q6H [facility] Stop: 05/08/17 05:01 Last Admin: 05/08/17 13:36 Dose: Not Given Lidocaine (Xylocaine-Mpf 2%) Confirm Administered Dose 5 ml .ROUTE .STK-MED ONE Stop: 05/07/17 08:51 Metoprolol Succinate (Toprol Xl) 25 mg PO BEDTIME [facility] Midazolam HCl (Versed 1 Mg/Ml) Confirm Administered Dose 2 mg .ROUTE .STK-MED ONE Stop: 05/07/17 08:52 Morphine Sulfate (Morphine) 1 - 3 mg IVPUSH Q3H PRN PRN Reason: Pain Morphine Sulfate (Morphine) 1 - 3 mg IVPUSH Q3H PRN PRN Reason: Pain Non-Formulary Medication (Multivits-Minerals/Fa/Lycopene [One Daily Tablet]) 1 tab PO DAILY [facility] Ondansetron HCl (Zofran) Confirm Administered Dose 4 mg .ROUTE .STK-MED ONE Stop: 05/07/17 08:51 Oxycodone HCl (Oxycontin) 20 mg PO ONARRIVE [facility] Last Admin: 05/07/17 08:15 Dose: 20 mg Oxycodone HCl (Oxycodone) 5 - 10 mg PO Q4H PRN PRN Reason: Pain Oxycodone HCl (Oxycontin) 20 mg PO Q12HR [facility] Oxycodone HCl (Oxycontin) 20 mg PO Q12HR [facility] Last Admin: 05/08/17 13:35 Dose: Not Given Phenylephrine HCl (Phenylephrine In Ns 100 Mcg/Ml) Confirm Administered Dose 1 mg .ROUTE .STK-MED ONE Stop: 05/07/17 09:58 Propofol (Diprivan 20 Ml) Confirm Administered Dose 200 mg .ROUTE .STK-MED ONE Stop: 05/07/17 08:51 Scopolamine (Transderm-Scop) 1.5 mg TRDERM ONARRIVE [facility] Last Admin: 05/07/17 08:16 Dose: 1.5 mg Scopolamine (Transderm-Scop) Confirm Administered Dose 1.5 mg .ROUTE .STK-MED ONE Stop: 05/07/17 09:38 Tranexamic Acid (Cyklokapron) 4,000 mg IV SEECOMMENT [facility] Tranexamic Acid (Cyklokapron) Confirm Administered Dose 4,000 mg .ROUTE .STK- MED ONE Stop: 05/07/17 07:48 - Exam General: Alert, Oriented, Cooperative, No Acute Distress Lungs: Clear to Auscultation, Normal Respiratory Effort Cardiovascular: Regular Rate, Irregular Rhythm GI/Abdominal Exam: Normal Bowel Sounds, Soft, Non-Tender, No Organomegaly, No Distention, No Abnormal Bruit, No Mass, Pelvis Stable Wound/Incisions: Dressing Dry and Intact Psy/Mental Status: Alert, Normal Affect, Normal Mood Consult PN Assessment/Plan Procedures: Procedures ASSAY OF GONADOTROPIN ([facility]) (12/20/15) ASSAY OF GONADOTROPIN (LH) (12/20/15) ASSAY THYROID STIM HORMONE (12/09/14) CARDIOVASCULAR STRESS TEST (12/21/16) CHEST X-RAY 2VW FRONTAL&LATL (04/16/17) CHORIONIC GONADOTROPIN ASSAY (01/30/14) COMP SCREEN MAMMOGRAM ADD-ON (12/20/15) COMPLETE CBC W/AUTO DIFF WBC (04/16/17) COMPREHEN METABOLIC PANEL (12/09/14) ELECTROCARDIOGRAM TRACING (04/16/17) GLYCOSYLATED HEMOGLOBIN TEST (04/16/17) HPV HIGH-RISK TYPES (12/22/16) HT MUSCLE IMAGE SPECT SING (12/25/16) INFLUENZA ASSAY W/OPTIC (08/21/16) LIPID PANEL (12/09/14) MANUAL THERAPY 1/> REGIONS (04/13/14) METABOLIC PANEL TOTAL CA (04/16/17) MRI JOINT OF LWR EXTR W/DYE (02/04/14) PROTHROMBIN TIME (04/16/17) PT EVALUATION (03/12/14) ROUTINE VENIPUNCTURE (04/16/17) THERAPEUTIC EXERCISES (04/22/14) TTE W/DOPPLER COMPLETE (12/25/16) URINALYSIS AUTO W/SCOPE (04/27/17) URINE BACTERIA CULTURE (12/03/13) URINE CULTURE/COLONY COUNT (04/16/17) US EXAM BREAST(S) (01/13/14) X-RAY EXAM KNEE 4 OR MORE (07/26/16) (1) PVC (premature ventricular contraction) SNOMED Code(s): 82890289 Code(s): I49.3 - VENTRICULAR PREMATURE DEPOLARIZATION Priority: Low Current Visit: Yes Problem List Initiated/Reviewed/Updated: Yes My Orders Last 24 Hours: My Active Orders 05/09/17 09:16 Magnesium Sulfate/Water [Magnesium Sulfate 4 GM in Water 100 ML] 4 gm Premix Bag 1 bag IV ONETIME Plan: This 46 year old female admitted for R TKA with Dr. Santos. 1. S/p R TKA: per ortho. 2. Hx palpitations with PVCs: Continue Metoprolol, Supplement Magnesium today, 4 gm IV. VTE prophylaxis: when deemed appropriate by Ortho.
--- NOTE | 2017-05-10 10:09 | PCM.DCSUM1 ---
Discharge Summary - Hospital Course Free Text/Narrative:: Ms Perez is a 46 year old female with a significant PMH of palpitations who presented to the hospital 05/07/17 for total right knee arthroplasty after failure of conservative management of arthritis. She underwent her procedure without complication, was transferred to the PACU and then to the medical surgical floor for further monitoring, pain management, and therapies. Post- operatively, she suffered from significant nausea which improved with a scopalamine patch, but then suffered from dizziness and dry mouth, leading to discontinuation of the scopolamine patch. POD 1 her chpaman catheter was removed, IVF discontinued, pain medications adjusted to be less nausea provoking; RLE pulses, sensation and ROM of ankle and toes remained appropriate post- operatively. However, she was unable to complete her therapies or tolerate an oral diet. POD 2 her nausea was improved, pain remained controlled, was voiding without issue, and tolerating more of a diet. Her dressing was changed, she was able to work with therapies, home therapy equipment provided and patient discharged home with follow-up in 8 days. Patient to change her dressing in 4 days at home. She was discharged home with prescriptions for continued BID aspirin, bowel regimen, NSAID regimen, and pain regimen. HPI Initial Comments: 46 year old female presents for Right total knee arthroplasty. - Discharge Data Discharge Date: 05/09/17 Discharge Disposition: Home, Self-Care 01 Condition: Good - Patient Summary/Data Operative Procedure(s) Performed: R TKA. HWR R tibia (deep implant) Complications: None Consults: Consultations 05/07/17 09:34 Consult to Physician [CONS] Routine PT Evaluation and Treatment [CONS] Routine Labs Pending at D/C: None Recommended Follow-up Testing/Procedures: 04/16/17 Planned Operative Procedure(s) after DC: None Hospital Course: Ms Perez is a 46 year old female with a significant PMH of palpitations who presented to the hospital 05/07/17 for total right knee arthroplasty after failure of conservative management of arthritis. She underwent her procedure without complication, was transferred to the PACU and then to the medical surgical floor for further monitoring, pain management, and therapies. Post- operatively, she suffered from significant nausea which improved with a scopalamine patch, but then suffered from dizziness and dry mouth, leading to discontinuation of the scopolamine patch. POD 1 her chapman catheter was removed, IVF discontinued, pain medications adjusted to be less nausea provoking; RLE pulses, sensation and ROM of ankle and toes remained appropriate post- operatively. However, she was unable to complete her therapies or tolerate an oral diet. POD 2 her nausea was improved, pain remained controlled, was voiding without issue, and tolerating more of a diet. Her dressing was changed, she was able to work with therapies, home therapy equipment provided and patient discharged home with follow-up in 8 days. Patient to change her dressing in 4 days at home. She was discharged home with prescriptions for continued BID aspirin, bowel regimen, NSAID regimen, and pain regimen. - Patient Instructions Diet: Regular Diet as Tolerated Activity: Full Weight Bearing Driving: Do Not Drive Showering/Bathing: November Shower Wound/Incision Care: Keep Operative Site/Wound Site Clean and Dry Notify Provider of: Fever, Increased Pain, Swelling and Redness, Drainage - Discharge Plan Home Medications: Home Meds [place] 1 tab PO DAILY 05/02/17 [History] Metoprolol Succinate 25 mg PO BEDTIME 05/02/17 [History] Multivits-Minerals/FA/Lycopene [One Daily Tablet] 1 tab PO DAILY 05/02/17 [ History] Patient Handouts: Oxycodone tablets or capsules, Celecoxib capsules, Total Knee Replacement, Care After, Jbem-in-Dsar, Acetaminophen tablets or caplets, Aspirin, ASA oral tablets, Docusate capsules Referrals: Marilyn Gerber PA-C [Physician Escapement Matcher] - 05/17/17 3:15 pm Maria M Santos MD [Physician] - 06/14/17 9:15 am - Discharge Summary/Plan Comment DC Time >30 min.: Yes Discharge Summary/Plan Comment: Ms Perez is a 46 year old female with a significant PMH of palpitations who presented to the hospital 05/07/17 for total right knee arthroplasty after failure of conservative management of arthritis. She underwent her procedure without complication, was transferred to the PACU and then to the medical surgical floor for further monitoring, pain management, and therapies. Post- operatively, she suffered from significant nausea which improved with a scopalamine patch, but then suffered from dizziness and dry mouth, leading to discontinuation of the scopolamine patch. POD 1 her chapman catheter was removed, IVF discontinued, pain medications adjusted to be less nausea provoking; RLE pulses, sensation and ROM of ankle and toes remained appropriate post- operatively. However, she was unable to complete her therapies or tolerate an oral diet. POD 2 her nausea was improved, pain remained controlled, was voiding without issue, and tolerating more of a diet. Her dressing was changed, she was able to work with therapies, home therapy equipment provided and patient discharged home with follow-up in 8 days. Patient to change her dressing in 4 days at home. She was discharged home with prescriptions for continued BID aspirin, bowel regimen, NSAID regimen, and pain regimen. - Patient Data Vitals - Most Recent: Last Vital Signs Temp 37.2 C 05/09/17 11:55 Pulse 68 05/09/17 11:55 Resp 18 05/09/17 11:55 BP 120/65 05/09/17 11:55 Pulse Ox 98 05/09/17 11:55 Weight - Most Recent: 99.79 kg Med Orders - Current: Current Medications Discontinued Medications Acetaminophen (Tylenol Extra Strength) 1,000 mg PO ONARRIVE [facility] Last Admin: 05/07/17 08:13 Dose: 1,000 mg Acetaminophen (Tylenol Extra Strength) 1,000 mg PO Q6H [facility] Acetaminophen (Tylenol Extra Strength) 1,000 mg PO Q6H [facility] Last Admin: 05/09/17 13:04 Dose: 1,000 mg Al Hydroxide/Mg Hydroxide (Mag-Al Plus) 30 ml PO Q4H PRN PRN Reason: indigestion Al Hydroxide/Mg Hydroxide (Mag-Al Plus) 30 ml PO Q4H PRN PRN Reason: indigestion Albuterol (Proventil Hfa) 0 gm INH ASDIRECTED PRN PRN Reason: Shortness of Breath Aspirin (Aspirin) 325 mg PO BID [facility] Aspirin (Aspirin) 325 mg PO BID [facility] Last Admin: 05/09/17 08:18 Dose: 325 mg Bisacodyl (Dulcolax) 10 mg RECTAL DAILY PRN PRN Reason: Constipation Bisacodyl (Dulcolax) 10 mg RECTAL DAILY PRN PRN Reason: Constipation Celecoxib (Celebrex) 200 mg PO BID [facility] Celecoxib (Celebrex) 200 mg PO BID [facility] Last Admin: 05/09/17 08:16 Dose: 200 mg Diphenhydramine HCl (Benadryl) 25 - 50 mg PO Q6H PRN PRN Reason: Itching Diphenhydramine HCl (Benadryl) 25 - 50 mg PO Q6H PRN PRN Reason: Itching Docusate Sodium (Colace) 100 mg PO BID [facility] Docusate Sodium (Colace) 100 mg PO BID [facility] Last Admin: 05/09/17 08:18 Dose: 100 mg Famotidine (Pepcid) 40 mg IVPUSH ONARRIVE [facility] Last Admin: 05/07/17 08:16 Dose: 40 mg Famotidine (Pepcid) 40 mg PO DAILY [facility] Famotidine (Pepcid) 40 mg PO DAILY [facility] Last Admin: 05/09/17 08:17 Dose: 40 mg Fentanyl (Sublimaze) Confirm Administered Dose 250 mcg .ROUTE .STK-MED ONE Stop: 05/07/17 08:52 Fentanyl (Sublimaze) 50 mcg IVPUSH Q5M PRN PRN Reason: Pain (severe 7-10) Stop: 05/08/17 10:23 Glycopyrrolate () Confirm Administered Dose 1 mg .ROUTE .STK-MED ONE Stop: 05/07/17 09:47 Hydromorphone HCl (Dilaudid) 0.5 - 1 mg IVPUSH Q3H PRN PRN Reason: Pain Ropivacaine 49.25 ml/Ketorolac Tromethamine 30 mg/Epinephrine HCl 0.5 mg/ Clonidine HCl 80 mcg/ Sodium Chloride 100 mls @ 50 mls/min INJECT ONETIME ONE Stop: 05/07/17 06:01 Lactated Ringer's (Ringers, Lactated) 1,000 mls @ 100 mls/hr IV ASDIRECTED [facility] Last Admin: 05/07/17 08:12 Dose: 100 mls/hr Clindamycin Phosphate 900 mg/ (Premix) 50 mls @ 100 mls/hr IV ONCALL [facility] Last Admin: 05/07/17 09:18 Dose: 100 mls/hr Ropivacaine 49.25 ml/Epinephrine HCl 0.5 mg/Clonidine HCl 80 mcg/ Sodium Chloride 100 mls @ 50 mls/min INJECT ONETIME ONE Stop: 05/07/17 07:43 Acetaminophen 1,000 mg/ Premix 100 mls @ 400 mls/hr IV Q6H [facility] Stop: 05/08/17 02:14 Last Admin: 05/08/17 13:37 Dose: Not Given Clindamycin Phosphate 900 mg/ (Premix) 50 mls @ 100 mls/hr IV Q8H [facility] Stop: 05/08/17 02:29 Last Admin: 05/08/17 13:36 Dose: Not Given Magnesium Sulfate 2 gm/ Premix 50 mls @ 50 mls/hr IV ONETIME ONE Stop: 05/07/17 16:37 Last Admin: 05/08/17 13:37 Dose: Not Given Magnesium Sulfate 4 gm/ Premix 100 mls @ 50 mls/hr IV ONETIME ONE Stop: 05/08/17 11:13 Last Admin: 05/08/17 13:34 Dose: Not Given Magnesium Sulfate 4 gm/ Premix 100 mls @ 50 mls/hr IV ONETIME ONE Stop: 05/09/17 11:15 Last Admin: 05/09/17 09:47 Dose: 50 mls/hr Ketorolac Tromethamine (Toradol) 30 mg IVPUSH ONARRIVE [facility] Ketorolac Tromethamine (Toradol) 30 mg IVPUSH Q6H [facility] Stop: 05/08/17 09:00 Ketorolac Tromethamine (Toradol) 30 mg IVPUSH Q6H [facility] Stop: 05/08/17 05:01 Last Admin: 05/08/17 13:36 Dose: Not Given Lidocaine (Xylocaine-Mpf 2%) Confirm Administered Dose 5 ml .ROUTE .STK-MED ONE Stop: 05/07/17 08:51 Metoprolol Succinate (Toprol Xl) 25 mg PO BEDTIME [facility] Metoprolol Succinate (Toprol Xl) 25 mg PO BEDTIME [facility] Last Admin: 05/08/17 20:49 Dose: 25 mg Midazolam HCl (Versed 1 Mg/Ml) Confirm Administered Dose 2 mg .ROUTE .STK-MED ONE Stop: 05/07/17 08:52 Morphine Sulfate (Morphine) 1 - 3 mg IVPUSH Q3H PRN PRN Reason: Pain Morphine Sulfate (Morphine) 1 - 3 mg IVPUSH Q3H PRN PRN Reason: Pain Multivitamins/Minerals (Thera M Plus) 1 tab PO DAILY [facility] Last Admin: 05/09/17 08:18 Dose: 1 tab Non-Formulary Medication (Multivits-Minerals/Fa/Lycopene [One Daily Tablet]) 1 tab PO DAILY [facility] Ondansetron HCl (Zofran) Confirm Administered Dose 4 mg .ROUTE .STK-MED ONE Stop: 05/07/17 08:51 Ondansetron HCl (Zofran) 4 mg IVPUSH Q6H PRN PRN Reason: Nausea/Vomiting Oxycodone HCl (Oxycontin) 20 mg PO ONARRIVE [facility] Last Admin: 05/07/17 08:15 Dose: 20 mg Oxycodone HCl (Oxycodone) 5 - 10 mg PO Q4H PRN PRN Reason: Pain Oxycodone HCl (Oxycontin) 20 mg PO Q12HR [facility] Oxycodone HCl (Oxycodone) 5 - 10 mg PO Q4H PRN PRN Reason: Pain Last Admin: 05/09/17 05:02 Dose: 5 mg Oxycodone HCl (Oxycontin) 20 mg PO Q12HR [facility] Last Admin: 05/08/17 13:35 Dose: Not Given Phenylephrine HCl (Phenylephrine In Ns 100 Mcg/Ml) Confirm Administered Dose 1 mg .ROUTE .STK-MED ONE Stop: 05/07/17 09:58 Prochlorperazine Edisylate (Compazine) 5 mg IVPUSH Q6H PRN PRN Reason: Nausea/Vomiting Last Admin: 05/08/17 21:27 Dose: 5 mg Propofol (Diprivan 20 Ml) Confirm Administered Dose 200 mg .ROUTE .STK-MED ONE Stop: 05/07/17 08:51 Scopolamine (Transderm-Scop) 1.5 mg TRDERM ONARRIVE [facility] Last Admin: 05/07/17 08:16 Dose: 1.5 mg Scopolamine (Transderm-Scop) Confirm Administered Dose 1.5 mg .ROUTE .STK-MED ONE Stop: 05/07/17 09:38 Tranexamic Acid (Cyklokapron) 4,000 mg IV SEECOMMENT [facility] Tranexamic Acid (Cyklokapron) Confirm Administered Dose 4,000 mg .ROUTE .STK- MED ONE Stop: 05/07/17 07:48 *Q Meaningful Use (DIS) - VTE *Q VTE Criteria *Q: - Stroke *Q Stroke Criteria *Q: - AMI *Q AMI Criteria *Q:
== END 2017-05-09 14:55 | disposition home or self-care (01) | DRG 302 ==
LOC: MW.MS 07:47 → MW.SDS 07:47 → EDSTATUS 11:15
PROVIDERS: ADMIT Orthopaedic Surgery; ATTEND Orthopaedic Surgery
PROC: 0SRC0J9 Replacement of Right Knee Joint with Synthetic Substitute, Cemented, Open Approach (ICD-10-PCS; principal; 2017-05-07)
PROC: 0YP90YZ Removal of Other Device from Right Lower Extremity, Open Approach (ICD-10-PCS; 2017-05-07)
DX: M17.11 Unilateral primary osteoarthritis, right knee (principal); M25.761 Osteophyte, right knee; M94.261 Chondromalacia, right knee; I49.3 Ventricular premature depolarization; R51 Headache; R11.0 Nausea; Z45.89 Encounter for adjustment and management of other implanted devices; Z88.7 Allergy status to serum and vaccine; Z79.899 Other long term (current) drug therapy
CPT/HCPCS: 01402; 36415; 73560-26-RT; 73560-RT; 80048; 83735; 84703; 85014; 85018; 85025; 86850; 86900; 86901; 88305; 88311; 97110-GP; 97116-GP; 97161-GP; A9270-GY; C1776; J0171; J0735; J0780; J2250; J2405; J2704; J2795; J3010; J3475; J7050; J7120

== ENCOUNTER 2019-03-13 12:10 | Day surgery (SDC) | payer BC ==
[~2019-03-13 12:10] MED LIST changes: -Acetaminophen 500 MG Tab PO SCH; -Clindamycin Phosphate in D5W 900 MG in Premix Bag 1 BAG IV SCH; -Famotidine 20 MG/2 ML SDV IVPUSH SCH; -Ketorolac 30 MG/ML SDV IVPUSH SCH; -Ropivacaine 49.25 ML, EPINEPHrine 0.5 MG, cloNIDine 80 MCG in Sodium Chloride 0.9% 49.4... INJECT ONE; -Ropivacaine 49.25 ML, Ketorolac 30 MG, EPINEPHrine 0.5 MG, cloNIDine 80 MCG in Sodium C... INJECT ONE; -Scopolamine 1.5 MG Transdermal Patch TRDERM SCH; +Sodium Chloride 0.9% 10 ML SDV IV PRN; +Sodium Chloride 0.9% 10 ML Syringe FLUSH PRN; +Sodium Chloride 0.9% 2.5 ML Syringe FLUSH PRN; -oxyCODONE ER 20 MG TAB.ER PO SCH
--- NOTE | 2019-03-13 12:40 | PCM.PREANE ---
Preanesthetic Assessment - Anesthesia/Transfusion/Family Hx Anesthesia History: Prior Anesthesia Without Reaction Family History of Anesthesia Reaction: No Transfusion History: No Prior Transfusion(s) Intubation History: Unknown - Review of Systems General: No Symptoms Pulmonary: No Symptoms Cardiovascular: No Symptoms Gastrointestinal: Constipation, Diarrhea Neurological: No Symptoms Other: Reports: None - Physical Assessment Height: 5 ft 7 in Weight: 106.594 kg ASA Class: 2 Mental Status: Alert & Oriented x3 Airway Class: Mallampati = 2 Dentition: Reports: Normal Dentition, [place](s) (x2 upper front, x1 right upper) Thyro-Mental Finger Breadths: 3 Mouth Opening Finger Breadths: 3 ROM/Head Extension: Full Lungs: Clear to Auscultation, Normal Respiratory Effort Cardiovascular: Regular Rate, Regular Rhythm - Allergies Allergies/Adverse Reactions: Allergies Allergy/AdvReac Type Severity Reaction Status Date / Time Penicillins Allergy Anaphylactic Verified 03/10/19 07:19 Shock pneumococcal vaccine Allergy Hives Verified 03/10/19 07:19 - Blood Blood Available: No - Anesthesia Plan Pre-Op Medication Ordered: None - Acknowledgements Anesthesia Type Planned: MAC Pt an Appropriate Candidate for the Planned Anesthesia: Yes Alternatives and Risks of Anesthesia Discussed w Pt/Guardian: Yes Pt/Guardian Understands and Agrees with Anesthesia Plan: Yes PreAnesthesia Questionnaire HEENT History: Reports: Allergic Rhinitis, Other (See Below) Other HEENT History: wears glasses Cardiovascular History: Reports: Other (See Below) (daily PVC lasting cople of minutes) Respiratory History: Reports: Asthma (mild) Gastrointestinal History: Reports: None Genitourinary History: Reports: None PATIENT OMBUDSPERSON History: Reports: 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, Musculoskeletal History: Reports: Back Pain, Chronic, Osteoarthritis Neurological History: Reports: Headaches, Chronic Psychiatric History: Reports: None Endocrine/Metabolic History: Reports: Hypothyroidism, Obesity/BMI 30+ Hematologic History: Reports: None Immunologic History: Reports: None Oncologic (Cancer) History: Reports: None Dermatologic History: Reports: None - Past Surgical History Head Surgeries/Procedures: Reports: None HEENT Surgical History: Reports: Naso-Sinus Surgery, Tonsillectomy Cardiovascular Surgical History: Reports: None Respiratory Surgical History: Reports: None GI Surgical History: Reports: None Female Surgical History: Reports: Breast Biopsy, Other (See Below) Other Female Surgeries/Procedures: hysteroscopy with ESSURE, laparoscopy x4 for endometriosis, breast bx's rt x2, lt x1 Endocrine Surgical History: Reports: Other (See Below) Other Endocrine Surgeries/Procedures: radioactive therapy on thyroid for graves disease Neurological Surgical History: Reports: None Musculoskeletal Surgical History: Reports: Arthroscopic Knee, Knee Replacement Other Musculoskeletal Surgeries/Procedures:: knee surgery x2, Rt TKA in 2017 Oncologic Surgical History: Reports: None Dermatological Surgical History: Reports: None - SUBSTANCE USE Smoking Status *Q: Never Smoker Recreational Drug Use History: No - HOME MEDS Home Medications: Home Meds Albuterol Sulfate [Proair Hfa] 1 puff INH Q4H PRN 03/10/19 [History] Estradiol/Norethindrone Acet [Activella 1 MG-0.5 MG] 1 tab PO DAILY 03/10/19 [ History] Fluticasone Propion/Salmeterol [Fluticasone-Salmeterol 100-50] 1 puff INH BID [History] Fluticasone Propionate [Flonase Allergy Relief] 1 - 2 spray NASBOTH ASDIRECTED PRN 03/10/19 [History] Ibuprofen [Advil] 1 tab PO ASDIRECTED PRN 03/10/19 [History] Levothyroxine [Synthroid] 100 mcg PO DAILY 03/10/19 [History] - CURRENT (IN HOUSE) MEDS Current Meds: Current Medications Lactated Ringer's (Ringers, Lactated) 1,000 mls @ 125 mls/hr IV ASDIRECTED STEVE Sodium Chloride (Saline Flush) 10 ml FLUSH ASDIRECTED PRN PRN Reason: Keep Vein Open Sodium Chloride (Saline Flush) 2.5 ml FLUSH ASDIRECTED PRN PRN Reason: Keep Vein Open Sodium Chloride (Saline Flush) 10 ml FLUSH ASDIRECTED PRN PRN Reason: Keep Vein Open Sodium Chloride (Saline Flush) 2.5 ml FLUSH ASDIRECTED PRN PRN Reason: Keep Vein Open Sodium Chloride (Normal Saline) 10 ml IV ASDIRECTED PRN PRN Reason: IV Use
[2019-03-13] MEDS ORDERED: Propofol 200 MG/20 ML SDV ONE ×2 (13:58→14:45)
[2019-03-13] MEDS ORDERED: Lidocaine 2% 5 ML SDV ONE (13:58)
[2019-03-13] MEDS ORDERED: Midazolam 1 MG/ML 2 ML SDV ONE (13:58)
[2019-03-13] MEDS ORDERED: fentaNYL 100 MCG/2 ML SDV ONE (13:59)
--- NOTE | 2019-03-13 14:58 | PCM.OPNOTE ---
- General Post-Op/Procedure Note Date of Surgery/Procedure: 03/13/19 Operative Procedure(s): Colonoscopy Findings: Normal colonoscopy Pre Op Diagnosis: Screening colonoscopy Post-Op Diagnosis: normal colonoscopy Anesthesia Technique: MAC Primary Surgeon: Millicent Desai Condition: Good
--- NOTE | 2019-03-13 15:19 | PCM.POSTAN ---
POST ANESTHESIA ASSESSMENT - MENTAL STATUS Mental Status: Alert, Oriented - VITAL SIGNS Vital Signs: Last Vital Signs Temp 36.6 C 03/13/19 14:54 Pulse 67 03/13/19 15:14 Resp 16 03/13/19 15:14 BP 108/63 03/13/19 15:14 Pulse Ox 95 03/13/19 15:14 - RESPIRATORY Respiratory Status: Respiratory Rate WNL, Airway Patent, O2 Saturation Stable - CARDIOVASCULAR CV Status: Pulse Rate WNL, Blood Pressure Stable - GASTROINTESTINAL GI Status: No Symptoms - PAIN Pain Score: 0 - POST OP HYDRATION Hydration Status: Adequate & Stable - OBSERVATIONS Free Text/Narrative:: no anesthesia problems
--- NOTE | 2019-03-13 16:05 | PCM48HPAN ---
Post Anesthesia Note - EVALUATION WITHIN 48HRS OF ANESTHETIC Vital Signs in Normal Range: Yes Patient Participated in Evaluation: Yes Respiratory Function Stable: Yes Airway Patent: Yes Cardiovascular Function Stable: Yes Hydration Status Stable: Yes Pain Control Satisfactory: Yes Nausea and Vomiting Control Satisfactory: Yes Mental Status Recovered: Yes Vital Signs: Last Vital Signs Temp 36.5 C 03/13/19 15:35 Pulse 68 03/13/19 15:35 Resp 16 03/13/19 15:35 BP 126/62 03/13/19 15:35 Pulse Ox 96 03/13/19 15:35 - COMMENTS/OBSERVATIONS Free Text/Narrative:: no anesthesia problems
--- NOTE | 2019-03-14 13:56 | OR ---
SURGEON: MILLICENT DESAI MD DATE OF PROCEDURE: 03/13/2019 PREOPERATIVE DIAGNOSIS: Screening colonoscopy. POSTOPERATIVE DIAGNOSIS: Screening colonoscopy. PROCEDURE PERFORMED: Screening colonoscopy. PRIMARY SURGEON: Millicent Desai MD. ANESTHESIA: MAC. INSTRUMENT USED: Olympus colonoscope. EXTENT OF EXAM: To the cecum. PREPARATION: Good. LIMITATIONS: None. INDICATIONS FOR EXAMINATION: The patient is a 48-year-old female who presents for a screening colonoscopy. I explained the procedure, expected perioperative course, and risks including bleeding, infection, or damage to surrounding structures including perforation. The patient verbalized understanding and wishes to proceed. PROCEDURE IN DETAIL: The patient was brought into the endoscopy suite and placed in the left lateral decubitus position. A time-out was completed verifying the patient's name, age, date of , allergies, and procedure to be performed. Monitored anesthesia care was induced and continuous oxygen was provided via nasal cannula throughout the procedure. After adequate sedation was achieved, a digital rectal exam was performed. This exam was within normal limits. A well-lubricated colonoscope was inserted in the rectum and advanced under direct visualization to the level of the cecum. The cecum was identified by both visual and anatomic landmarks. A photograph was taken of the cecal cap as well as with the scope retroflexed within the cecum. The scope was then fully withdrawn while examining the color, texture, anatomy, and integrity of the mucosa from the cecum to the anal canal. The findings were consistent with normal colonic mucosa. The scope was then brought into the rectum and retroflexed to allow visualization of the anal canal opening. This appeared normal and a photograph was taken. The scope was then straightened out and fully withdrawn. The cecum to anus time was 10 minutes. The patient was transferred to the PACU in stable condition. ENDOSCOPIC DIAGNOSIS: Normal colonoscopy. RECOMMENDATIONS: Follow up in clinic in 10 years. NINFA / OWEN /[id number]
== END 2019-03-13 15:50 | disposition home or self-care (01) ==
LOC: MW.SDS 12:10
PROVIDERS: ATTEND Surgery
DX: Z12.11 Encounter for screening for malignant neoplasm of colon (principal); K59.00 Constipation, unspecified; R19.7 Diarrhea, unspecified; E05.90 Thyrotoxicosis, unspecified without thyrotoxic crisis or storm; J45.909 Unspecified asthma, uncomplicated; M17.11 Unilateral primary osteoarthritis, right knee; Z88.0 Allergy status to penicillin; Z88.7 Allergy status to serum and vaccine; Z79.51 Long term (current) use of inhaled steroids; Z79.899 Other long term (current) drug therapy
CPT/HCPCS: 81025; J2001; J2250; J2704; J3010; J7120

== ENCOUNTER 2019-12-23 04:54 | Observation (INO) | payer BC ==
[2019-12-23] MEDS ORDERED: Sodium Chloride 0.9% 2.5 ML Syringe FLUSH PRN ×2 (05:18)
[2019-12-23] MEDS ORDERED: Famotidine 20 MG/2 ML SDV IVPUSH ONE (05:21)
[2019-12-23] MEDS ORDERED: diphenhydrAMINE 50 MG/ML SDV IVPUSH ONE ×2 (05:22→07:05)
--- NOTE | 2019-12-23 05:27 | EDM.PDOC ---
ED HPI GENERAL MEDICAL PROBLEM - General Chief Complaint: General Stated Complaint: BODY PAIN Time Seen by Provider: 12/23/19 05:10 - History of Present Illness INITIAL COMMENTS - FREE TEXT/NARRATIVE: History of present illness: [] Patient presents with some chest pain that began earlier this morning it began with sharp pains shooting into her left arm across her chest down into her legs and into her back. It started out with some itching and tingling in her fingers and itching all over she took some Benadryl and that did not seem to help it hurts worse when she is laying on her back she is feeling better when she sitting upright she is also having some trouble breathing she denies any cough or fever she is not had this kind of pain before she denies any prior heart conditions she has not had any leg pain or leg swelling. Previous history of Graves' disease with thyroid ablation. During that point in time she had some palpitations but she is never had any other cardiac problems before. Review of systems: As per history of present illness and below otherwise all systems reviewed and negative. Past medical history: As per history of present illness and as reviewed below otherwise noncontributory. Surgical history: As per history of present illness and as reviewed below otherwise noncontributory. Social history: No reported history of drug or alcohol abuse. Family history: As per history of present illness and as reviewed below otherwise noncontributory. Physical exam: HEENT: Atraumatic, normocephalic, pupils reactive, negative for conjunctival pallor or scleral icterus, mucous membranes moist, throat clear, neck supple, nontender, trachea midline. Lungs: Clear to auscultation, breath sounds equal bilaterally, chest nontender. Heart: S1S2, regular, negative for clicks, rubs, or JVD. Abdomen: Soft, nondistended, nontender. Negative for masses or hepatosplenomegaly. Negative for costovertebral tenderness. Pelvis: Stable nontender. Genitourinary: Deferred. Rectal: Deferred. Extremities: Atraumatic, negative for cords or calf pain. Neurovascular unremarkable. Neuro: Awake, alert, oriented. Cranial nerves II through XII unremarkable. Cerebellum unremarkable. Motor and sensory unremarkable throughout. Exam nonfocal. Diagnostics: [] Therapeutics: [] Impression: Atypical chest pain with radiation to back and extremities. [] Plan: Going to treat her symptomatic itching with Benadryl and Pepcid. In the meantime and I do a cardiac work-up and also scan her chest to rule out pathology such as PE and aortic dissection. [] Definitive disposition and diagnosis as appropriate pending reevaluation and review of above. Generalized Pain Score (Numeric/FACES): 3 - Related Data Allergies Allergy/AdvReac Type Severity Reaction Status Date / Time Penicillins Allergy Anaphylactic Verified 12/23/19 05:01 Shock pneumococcal vaccine Allergy Hives Verified 12/23/19 05:01 Home Meds: Home Meds Albuterol Sulfate [Proair Hfa] 1 puff INH Q4H PRN 03/10/19 [History] Estradiol/Norethindrone Acet [Activella 1 MG-0.5 MG] 1 tab PO DAILY 03/10/19 [ History] Levothyroxine 125 mcg PO ACBREAKFAST 12/23/19 [History] Past Medical History HEENT History: Reports: Allergic Rhinitis, Other (See Below) Other HEENT History: wears glasses Cardiovascular History: Reports: None Respiratory History: Reports: Asthma Gastrointestinal History: Reports: None Genitourinary History: Reports: None BLADDER BLOWER History: Reports: 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, Musculoskeletal History: Reports: Back Pain, Chronic, Osteoarthritis Neurological History: Reports: Headaches, Chronic Psychiatric History: Reports: None Endocrine/Metabolic History: Reports: Hypothyroidism, Obesity/BMI 30+ Hematologic History: Reports: None Immunologic History: Reports: None Oncologic (Cancer) History: Reports: None Dermatologic History: Reports: None - Infectious Disease History Infectious Disease History: Reports: Chicken Pox - Past Surgical History Head Surgeries/Procedures: Reports: None HEENT Surgical History: Reports: Naso-Sinus Surgery, Tonsillectomy Cardiovascular Surgical History: Reports: None Respiratory Surgical History: Reports: None GI Surgical History: Reports: None Female Surgical History: Reports: Breast Biopsy, Other (See Below) Other Female Surgeries/Procedures: hysteroscopy with ESSURE, laparoscopy x4 for endometriosis, breast bx's rt x2, lt x1 Endocrine Surgical History: Reports: Other (See Below) Other Endocrine Surgeries/Procedures: radioactive therapy on thyroid for graves disease Neurological Surgical History: Reports: None Musculoskeletal Surgical History: Reports: Arthroscopic Knee, Knee Replacement Other Musculoskeletal Surgeries/Procedures:: knee surgery x2, Rt TKA in 2017 Oncologic Surgical History: Reports: None Dermatological Surgical History: Reports: None Social & Family History - Family History Family Medical History: Noncontributory - Tobacco Use Smoking Status *Q: Never Smoker Second Hand Smoke Exposure: No - Caffeine Use Caffeine Use: Reports: Coffee, Soda - Recreational Drug Use Recreational Drug Use: No ED ROS GENERAL - Review of Systems Review Of Systems: See Below ED EXAM, GENERAL - Physical Exam Exam: See Below EKG INTERPRETATION EKG Interpretation Comments: EKG is a sinus rhythm with ventricular bigeminy no obvious ischemic changes rate is 89 bpm when compared to an old EKG this is a change since April 2017. Read and interpreted by me Course - Vital Signs Text/Narrative:: Patient has negative labs normal troponin her EKG was an unusual bigeminy but does not appear to be ischemic a CT Essence of the chest does not reveal any PE or dissection. He assessed at 6:50 AM and continues to have pain going into her left arm The case with Dr. Tanner at 6:50 AM at the patient telemetry ops were given at this time as I ruled out dissection and she will get some morphine and Zofran for pain Last Recorded V/S: Last Vital Signs Temp 35.6 C L 12/23/19 05:04 Pulse 70 12/23/19 06:27 Resp 14 12/23/19 06:27 BP 124/60 12/23/19 06:27 Pulse Ox 96 12/23/19 06:27 - Orders/Labs/Meds Orders: Active Orders 24 hr Category Date Time Status EKG 12 Lead [EKG Documentation Completion] [RC] STAT Care 12/23/19 05:09 Active Sodium Chloride 0.9% [Saline Flush] Med 12/23/19 05:18 Active 2.5 ml FLUSH ASDIRECTED PRN Sodium Chloride 0.9% [Saline Flush] Med 12/23/19 05:18 Active 2.5 ml FLUSH ASDIRECTED PRN Saline Lock Insert [OM.PC] Stat Oth 12/23/19 05:18 Ordered Medication Orders Sodium Chloride (Saline Flush) 2.5 ml FLUSH ASDIRECTED PRN PRN Reason: Keep Vein Open Sodium Chloride (Saline Flush) 2.5 ml FLUSH ASDIRECTED PRN PRN Reason: Keep Vein Open Labs: Laboratory Tests 12/23/19 12/23/19 Range/Units 05:26 05:26 WBC 7.92 (4.0-11.0) K/uL RBC 4.76 (4.30-5.90) M/uL Hgb 13.5 (12.0-16.0) g/dL Hct 42.2 (36.0-46.0) % MCV 88.7 (80.0-98.0) fL MCH 28.4 (27.0-32.0) pg MCHC 32.0 (31.0-37.0) g/dL RDW Std Deviation 39.0 (28.0-62.0) fl RDW Coeff of Eliza 12 (11.0-15.0) % Plt Count 270 (150-400) K/uL MPV 10.30 (7.40-12.00) fL Neut % (Auto) 65.1 (48.0-80.0) % Lymph % (Auto) 27.4 (16.0-40.0) % [place] % (Auto) 5.9 (0.0-15.0) % Eos % (Auto) 1.1 (0.0-7.0) % Baso % (Auto) 0.5 (0.0-1.5) % Neut # (Auto) 5.2 (1.4-5.7) K/uL Lymph # (Auto) 2.2 (0.6-2.4) K/uL [place] # (Auto) 0.5 (0.0-0.8) K/uL Eos # (Auto) 0.1 (0.0-0.7) K/uL Baso # (Auto) 0.0 (0.0-0.1) K/uL Nucleated RBC % 0.0 /100WBC Nucleated RBCs # 0 K/uL Sodium 137 (136-145) mmol/L Potassium 4.1 (3.5-5.1) mmol/L Chloride 101 (98-107) mmol/L Carbon Dioxide 25.9 (21.0-32.0) mmol/L BUN 12 (7.0-18.0) mg/dL Creatinine 1.0 (0.6-1.0) mg/dL Est Cr Clr Drug Dosing 64.72 mL/min Estimated GFR (MDRD) 58.5 ml/min Glucose 124 H (74-106) mg/dL Calcium 8.9 (8.5-10.1) mg/dL Total Bilirubin 0.3 (0.2-1.0) mg/dL AST 15 (15-37) IU/L ALT 18 (14-63) IU/L Alkaline Phosphatase 46 (46-116) U/L Troponin I < 0.050 (0.000-0.056) ng/mL Total Protein 7.4 (6.4-8.2) g/dL Albumin 3.8 (3.4-5.0) g/dL Globulin 3.6 (2.6-4.0) g/dL Albumin/Globulin Ratio 1.1 (0.9-1.6) Lipase 86 (73-393) U/L TSH 3rd Generation 7.68 H (0.36-3.74) uIU/mL Meds: Medications Generic Name Dose Route Start Last Admin Trade Name Freq PRN Reason Stop Dose Admin Sodium Chloride 2.5 ml 12/23/19 05:18 Saline Flush FLUSH ASDIRECTED PRN Keep Vein Open Sodium Chloride 2.5 ml 12/23/19 05:18 Saline Flush FLUSH ASDIRECTED PRN Keep Vein Open Discontinued Medications Generic Name Dose Route Start Last Admin Trade Name Freq PRN Reason Stop Dose Admin Aspirin 324 mg 12/23/19 06:47 Aspirin PO 12/23/19 06:48 ONETIME ONE Diphenhydramine HCl 25 mg 12/23/19 05:22 12/23/19 05:29 Benadryl IVPUSH 12/23/19 05:23 Not Given ONETIME ONE Famotidine 20 mg 12/23/19 05:21 12/23/19 05:29 Pepcid IVPUSH 12/23/19 05:22 Not Given ONETIME ONE Iopamidol 50 ml 12/23/19 06:22 12/23/19 06:23 Isovue Multipack-370 (76%) IVPUSH 12/23/19 06:23 50 ml ONETIME STA Administration Morphine Sulfate 4 mg 12/23/19 06:47 Morphine IVPUSH 12/23/19 06:48 ONETIME ONE Ondansetron HCl 4 mg 12/23/19 06:48 Zofran IVPUSH 12/23/19 06:49 ONETIME ONE Departure - Departure Time of Disposition: 06:52 Disposition: Refer to Observation Clinical Impression: Chest pain Qualifiers: Chest pain type: unspecified Qualified Code(s): R07.9 - Chest pain, unspecified - Discharge Information *PRESCRIPTION DRUG MONITORING PROGRAM REVIEWED*: Not Applicable *COPY OF PRESCRIPTION DRUG MONITORING REPORT IN PATIENT KARLA: Not Applicable Referrals: Kaelyn Kim IT OPERATIONS SPECIALIST [Primary Care Provider] - Forms: ED Department Discharge Sepsis Event Note - Evaluation Sepsis Screening Result: No Definite Risk - Focused Exam Vital Signs: Vital Signs Temp Pulse Resp BP Pulse Ox 12/23/19 06:27 70 14 124/60 96 12/23/19 05:58 80 14 136/70 96 12/23/19 05:04 35.6 C L 52 L 15 141/92 H 96 Date Exam was Performed: 12/23/19 Time Exam was Performed: 06:51 - My Orders Last 24 Hours: My Active Orders 12/23/19 05:09 EKG 12 Lead [EKG Documentation Completion] [RC] STAT 12/23/19 05:18 Sodium Chloride 0.9% [Saline Flush] 2.5 ml FLUSH ASDIRECTED PRN Sodium Chloride 0.9% [Saline Flush] 2.5 ml FLUSH ASDIRECTED PRN Saline Lock Insert [OM.PC] Stat - Assessment/Plan Last 24 Hours: My Active Orders 12/23/19 05:09 EKG 12 Lead [EKG Documentation Completion] [RC] STAT 12/23/19 05:18 Sodium Chloride 0.9% [Saline Flush] 2.5 ml FLUSH ASDIRECTED PRN Sodium Chloride 0.9% [Saline Flush] 2.5 ml FLUSH ASDIRECTED PRN Saline Lock Insert [OM.PC] Stat
[2019-12-23 05:58] LABS: BLOOD UREA NITROGEN,BUN 12 mg/dL (7.0-18.0); CARBON DIOXIDE,CO2 25.9 mmol/L (21.0-32.0); CHLORIDE,CL 101 mmol/L (98-107); GLUCOSE RANDOM 124 mg/dL (74-106); LIPASE 86 U/L (73-393); POTASSIUM,K 4.1 mmol/L (3.5-5.1); SODIUM,NA 137 mmol/L (136-145)
[2019-12-23] MEDS ORDERED: Iopamidol 755 MG/ML 500 ML Multipack Bottle IVPUSH STA (06:22)
--- NOTE | 2019-12-23 06:42 | CT ---
INDICATION: Chest pain and pressure. COMPARISON: January 19, 2017 TECHNIQUE: : CT examination of the chest was performed with the uneventful intravenous administration of 50 cc of Isovue 370 while thin axial sections were obtained from above the apices of the lungs to the lung bases. Please note that all CT scans at this facility use dose modulation, iterative reconstruction, and/or weight-based dosing when appropriate to reduce radiation dose to as low as reasonably achievable. FINDINGS: : HEART and MEDIASTINUM: The heart size is normal. There is no mediastinal or hilar adenopathy or mass. There is no pericardial effusion.Atherosclerotic vascular calcifications PULMONARY ARTERIAL CIRCULATION: There is no visible intraluminal filling defect to suggest pulmonary embolus. LUNGS: The lungs show no focal consolidation or mass. The airways appear normal. PLEURAL SPACES: There is no pleural effusion, pneumothorax or pleural based mass. VISUALIZED UPPER ABDOMEN: Hepatic steatosis. Otherwise, the limited visualized upper abdominal structures appear normal. OSSEOUS STRUCTURES: Age-appropriate appearance. No acute fracture or destructive process. TUBES and LINES: None. IMPRESSION: No findings of pulmonary embolus. Clear lungs. Please note that all CT scans at this facility use dose modulation, iterative reconstruction, and/or weight-based dosing when appropriate to reduce radiation dose to as low as reasonably achievable. Dictated by Jaycob Altman MD @ Dec 23 2019 6:33AM Signed by Dr. Jaycob Altman @ Dec 23 2019 6:40AM
[2019-12-23] MEDS ORDERED: Morphine 4 MG/ML Syringe IVPUSH ONE (06:47)
[2019-12-23] MEDS ORDERED: Aspirin 81 MG Tab.Chew PO ONE (06:47)
[2019-12-23] MEDS ORDERED: Ondansetron 4 MG/2 ML SDV IVPUSH ONE (06:48)
--- NOTE | 2019-12-23 07:55 | PCM.HP.2 ---
H&P History of Present Illness - General Date of Service: 12/23/19 Admit Problem/Dx: Admission Diagnosis/Problem Admission Diagnosis/Problem Chest pain Source of Information: Patient History Limitations: Reports: No Limitations - History of Present Illness Initial Comments - Free Text/Narative: Patient is a 49-year-old female with a significant past medical history of Graves' disease status post ablation currently on levothyroxine 120 mcg daily, obesity, postmenopausal; presenting to the ED this morning for chest pain and upper extremity discomfort. Patient mention last night having symptoms in her arms and her chest and throughout the night tried a dose of Benadryl thinking it was a allergic reaction to diclofenac. Patient is currently taking diclofenac for arthritis and otherwise cannot recall any other new drugs and or foods that she has taken. Does have an allergy to penicillins however denies taking any penicillin or penicillin related products recently. Patient denies any fevers, chills, body aches, shortness of breath currently; denies any dizziness upon standing. ED course; EKG sinus rhythm bradycardic/multiple ventricular bigmeny ; pt. endorsed history of both bradycardia and multiple PVC's; received Benadryl x3 and morphine; states feeling better. Troponin negative CT Angio: Negative for pulmonary embolus Bedside no new complaints since admission to ED. Generalized Pain Score (Numeric/FACES): 3 - Related Data Allergies/Adverse Reactions: Allergies Allergy/AdvReac Type Severity Reaction Status Date / Time Penicillins Allergy Anaphylactic Verified 12/23/19 08:18 Shock pneumococcal vaccine Allergy Hives Verified 12/23/19 08:18 Home Medications: Home Meds Albuterol Sulfate [Proair Hfa] 1 puff INH Q4H PRN 03/10/19 [History] Estradiol/Norethindrone Acet [Activella 1 MG-0.5 MG] 1 tab PO DAILY 03/10/19 [ History] Levothyroxine [Synthroid] 125 mcg PO ACBREAKFAST 12/23/19 [History] Past Medical History HEENT History: Reports: Allergic Rhinitis, Other (See Below) Other HEENT History: wears glasses Cardiovascular History: Reports: None Respiratory History: Reports: Asthma Gastrointestinal History: Reports: None Genitourinary History: Reports: None 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: 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, Musculoskeletal History: Reports: Back Pain, Chronic, Osteoarthritis Neurological History: Reports: Headaches, Chronic Psychiatric History: Reports: None Endocrine/Metabolic History: Reports: Hypothyroidism, Obesity/BMI 30+ Hematologic History: Reports: None Immunologic History: Reports: None Oncologic (Cancer) History: Reports: None Dermatologic History: Reports: None - Infectious Disease History Infectious Disease History: Reports: Chicken Pox - Past Surgical History Head Surgeries/Procedures: Reports: None HEENT Surgical History: Reports: Naso-Sinus Surgery, Tonsillectomy Cardiovascular Surgical History: Reports: None Respiratory Surgical History: Reports: None GI Surgical History: Reports: None Female Surgical History: Reports: Breast Biopsy, Other (See Below) Other Female Surgeries/Procedures: hysteroscopy with ESSURE, laparoscopy x4 for endometriosis, breast bx's rt x2, lt x1 Endocrine Surgical History: Reports: Other (See Below) Other Endocrine Surgeries/Procedures: radioactive therapy on thyroid for graves disease Neurological Surgical History: Reports: None Musculoskeletal Surgical History: Reports: Arthroscopic Knee, Knee Replacement Other Musculoskeletal Surgeries/Procedures:: knee surgery x2, Rt TKA in 2017 Oncologic Surgical History: Reports: None Dermatological Surgical History: Reports: None Social & Family History - Family History Family Medical History: Noncontributory - Tobacco Use Smoking Status *Q: Never Smoker Second Hand Smoke Exposure: No - Caffeine Use Caffeine Use: Reports: Coffee, Soda - Recreational Drug Use Recreational Drug Use: No H&P Review of Systems - Review of Systems: Review Of Systems: See Below General: Denies: Fever, Malaise, Weakness, Fatigue HEENT: Reports: No Symptoms Pulmonary: Reports: No Symptoms Cardiovascular: Denies: Chest Pain, Dyspnea on Exertion, Edema Gastrointestinal: Denies: No Symptoms, Abdominal Pain, Black Stool, Bloody Stool Genitourinary: Reports: No Symptoms Musculoskeletal: Reports: Neck Pain, Shoulder Pain, Arm Pain Skin: Reports: No Symptoms Psychiatric: Reports: No Symptoms Neurological: Reports: Paresthesia Exam - Exam Exam: See Below - Vital Signs Vital Signs: Last Vital Signs Temp 97.1 F 12/23/19 07:52 Pulse 43 L 12/23/19 07:52 Resp 16 12/23/19 07:52 BP 146/74 H 12/23/19 07:52 Pulse Ox 96 12/23/19 07:52 Weight: 108.862 kg - Exam Quality Assessment: No: Supplemental Oxygen General: Alert, Oriented, Cooperative HEENT: EACs Clear, EOMI Neck: Supple, Trachea Midline, Full Range of Motion, Other (no midline spainl tenderness ) Lungs: Clear to Auscultation, Normal Respiratory Effort Cardiovascular: Regular Rhythm, Bradycardia GI/Abdominal Exam: Soft, Non-Tender, No Organomegaly Back Exam: Normal Inspection Extremities: Normal Inspection, Normal Range of Motion, Non-Tender, No Pedal Edema Skin: Warm, Dry Neurological: Cranial Nerves Intact, Reflexes Equal Bilateral Neuro Extensive - Mental Status: Alert, Oriented x3, Normal Mood/Affect Neuro Extensive - Motor, Sensory, Reflexes: Normal Gait Psychiatric: Alert, Normal Affect, Normal Mood - Patient Data Lab Results Last 24 hrs: Laboratory Results - last 24 hr 12/23/19 12/23/19 Range/Units 05:26 05:26 WBC 7.92 (4.0-11.0) K/uL RBC 4.76 (4.30-5.90) M/uL Hgb 13.5 (12.0-16.0) g/dL Hct 42.2 (36.0-46.0) % MCV 88.7 (80.0-98.0) fL MCH 28.4 (27.0-32.0) pg MCHC 32.0 (31.0-37.0) g/dL RDW Std Deviation 39.0 (28.0-62.0) fl RDW Coeff of Eliza 12 (11.0-15.0) % Plt Count 270 (150-400) K/uL MPV 10.30 (7.40-12.00) fL Neut % (Auto) 65.1 (48.0-80.0) % Lymph % (Auto) 27.4 (16.0-40.0) % [place] % (Auto) 5.9 (0.0-15.0) % Eos % (Auto) 1.1 (0.0-7.0) % Baso % (Auto) 0.5 (0.0-1.5) % Neut # (Auto) 5.2 (1.4-5.7) K/uL Lymph # (Auto) 2.2 (0.6-2.4) K/uL [place] # (Auto) 0.5 (0.0-0.8) K/uL Eos # (Auto) 0.1 (0.0-0.7) K/uL Baso # (Auto) 0.0 (0.0-0.1) K/uL Nucleated RBC % 0.0 /100WBC Nucleated RBCs # 0 K/uL Sodium 137 (136-145) mmol/L Potassium 4.1 (3.5-5.1) mmol/L Chloride 101 (98-107) mmol/L Carbon Dioxide 25.9 (21.0-32.0) mmol/L BUN 12 (7.0-18.0) mg/dL Creatinine 1.0 (0.6-1.0) mg/dL Est Cr Clr Drug Dosing 64.72 mL/min Estimated GFR (MDRD) 58.5 ml/min Glucose 124 H (74-106) mg/dL Calcium 8.9 (8.5-10.1) mg/dL Total Bilirubin 0.3 (0.2-1.0) mg/dL AST 15 (15-37) IU/L ALT 18 (14-63) IU/L Alkaline Phosphatase 46 (46-116) U/L Troponin I < 0.050 (0.000-0.056) ng/mL Total Protein 7.4 (6.4-8.2) g/dL Albumin 3.8 (3.4-5.0) g/dL Globulin 3.6 (2.6-4.0) g/dL Albumin/Globulin Ratio 1.1 (0.9-1.6) Lipase 86 (73-393) U/L TSH 3rd Generation 7.68 H (0.36-3.74) uIU/mL Result Diagrams: 12/23/19 05:26 12/23/19 05:26 Problem List Initiated/Reviewed/Updated: Yes Orders Last 24hrs: Active Orders 24 hr Category Date Time Status Admission Status [Patient Status] [ADT] Stat ADT 12/23/19 06:53 Active EKG 12 Lead [EKG Documentation Completion] [RC] STAT Care 12/23/19 05:09 Active Up ad Paulette [RC] ASDIRECTED Care 12/23/19 07:49 Ordered Vital Signs [RC] PER UNIT ROUTINE Care 12/23/19 07:49 Ordered Regular Diet [DIET] Diet 12/23/19 Lunch Ordered GLYCOSYLATED HEMOGLOBIN,HGBA1C [CHEM] Routine Lab 12/23/19 07:52 Ordered LIPID PANEL [CHEM] Routine Lab 12/23/19 07:52 Ordered TROPONIN I [CHEM] Timed Lab 12/23/19 08:30 Ordered TROPONIN I [CHEM] Timed Lab 12/23/19 11:30 Ordered Heparin Sodium Med 12/23/19 08:00 Ordered 5,000 units SUBCUT Q12H Levothyroxine [Synthroid] Med 12/24/19 07:30 Active 100 mcg PO ACBREAKFAST Omeprazole Med 12/23/19 17:00 Ordered 20 mg PO BIDAC Sodium Chloride 0.9% [Saline Flush] Med 12/23/19 05:18 Active 2.5 ml FLUSH ASDIRECTED PRN Sodium Chloride 0.9% [Saline Flush] Med 12/23/19 05:18 Active 2.5 ml FLUSH ASDIRECTED PRN Saline Lock Insert [OM.PC] Stat Oth 12/23/19 05:18 Ordered Medication Orders Heparin Sodium (Porcine) (Heparin Sodium) 5,000 units SUBCUT Q12H STEVE Levothyroxine Sodium (Synthroid) 100 mcg PO ACBREAKFAST STEVE Omeprazole (Omeprazole) 20 mg PO BIDAC STEVE Sodium Chloride (Saline Flush) 2.5 ml FLUSH ASDIRECTED PRN PRN Reason: Keep Vein Open Sodium Chloride (Saline Flush) 2.5 ml FLUSH ASDIRECTED PRN PRN Reason: Keep Vein Open Assessment/Plan Comment:: Assessment: 1. Atypical chest pain : ACS Rule out 2. Hypothyroidism w. elevated TSH ; possibly subclinical hypothyroidism 3. PMH: Graves disease s/p ablation, post-menopausal Plan Admit to obs. Full code. Up ad paulette. GI: omeprazole. DVT: heparin [id number]. ASA given in ED. Continue telemetry for bradycardia. vitals per routine. A1c:5.7 1. CP: Initial troponin Negative. recheck x 2 q 3 hours. Bradycardic, chronic per pt. history; mentating well and not currently symptomatic; possibly reaction to Morphine; continue to monitor. Subclinical hypothyroidism also a factor; Some concerns about an allergic reaction to unknown medication; possibly diclofenac; have already received Benadryl in ED ; continue to monitor. pain control : Tylenol #3 Iv solumedrol q 6 hours :pain and allergy Since upper extremity pain is b/l : some concers about neck arthritis also being the cause 9 CT neck ordered. will follow-up 2. Hypothyroidism: elevated TSH; restart home medication of Levothyroxine; recheck TSH at appropriate interval 3. PMH: continue home medication Sepsis Event Note - Evaluation Sepsis Screening Result: No Definite Risk - Focused Exam Vital Signs: Vital Signs Temp Pulse Resp BP Pulse Ox 12/23/19 07:52 97.1 F 43 L 16 146/74 H 96 12/23/19 07:26 60 16 148/73 H 96 12/23/19 06:27 70 14 124/60 96 12/23/19 05:58 80 14 136/70 96 12/23/19 05:04 96.1 F L 52 L 15 141/92 H 96 Date Exam was Performed: 12/23/19 Time Exam was Performed: 11:39
[2019-12-23] MEDS ORDERED: Heparin Sodium 5,000 Units/ML Vial SUBCUT SCH (08:00)
[2019-12-23] MEDS ORDERED: Sodium Chloride 0.9% 500 ML IV SCH (08:45)
[2019-12-23 09:01] LABS: HEMOGLOBIN A1C 5.7 % (4.5-6.2)
[2019-12-23] MEDS ORDERED: Levothyroxine 125 MCG Tab PO SCH (09:30)
[2019-12-23] MEDS ORDERED: Acetaminophen/Codeine 300-30 MG Tab PO PRN (10:04)
[2019-12-23] MEDS: methylPREDNISolone Sodium Succinate 40 MG/1 ML SDV IVPUSH SCH ×2 (10:41→16:23)
[2019-12-23] MEDS ORDERED: Magnesium Sulfate/Water 2 GM in Premix Bag 1 BAG IV ONE (11:44)
--- NOTE | 2019-12-23 12:22 | CT ---
CT cervical spine Technique: Multiple axial sections were obtained from above C1 inferiorly to the inferior T2 level. Reconstructed sagittal and coronal images were obtained. Comparison: No prior cervical spine imaging is available. Findings: C2-3: Degenerative change is noted between the dens and anterior arch of C2. No central canal stenosis is seen. C2-3: Moderate disc space narrowing is seen. Degenerative apophyseal change is noted which is worse on the right side which shows fusion of the right apophyseal joint. No central canal stenosis or neural foraminal stenosis is seen. C3-4: Moderate disc space narrowing is seen. Degenerative apophyseal change is noted. Mild posterior osteophytes are seen. No central canal stenosis or neural foraminal. C4-5: Minimal disc space narrowing is seen. Mild degenerative apophyseal change is noted. No central canal stenosis or neural foraminal stenosis is seen. C5-6: Severe disc space narrowing is seen. Prominent posterior osteophytes are seen causing moderate central canal stenosis. Neural foramina appear to be patent. Mild antral osteophytes are noted. C6-7: Fairly severe disc space narrowing is seen. Mild posterior osteophytes and diffuse posterior disc bulging is noted. No central canal stenosis or neural foraminal stenosis. C7-T1: Disc space narrowing noted. No central canal stenosis or neural foraminal stenosis is seen. T1-2: No central canal stenosis or neural foraminal. No acute fracture or subluxation is seen. Impression: 1. Degenerative change as noted above most prominent at C5-6 with posterior osteophytes causing moderate central canal stenosis. Diagnostic code #3 This report was dictated in MDT
[2019-12-23] MEDS: Omeprazole 20 MG Cap.CR PO SCH ×2 (16:23→17:59)
--- NOTE | 2019-12-23 18:16 | PCM.DCSUM1 ---
Discharge Summary - Hospital Course Free Text/Narrative:: Patient is a 49-year-old female with a significant past medical history of Graves' disease status post ablation currently on levothyroxine 120 mcg daily, obesity, postmenopausal; presenting to the ED for chest pain and upper extremity discomfort. Patient mention last night having symptoms in her arms and her chest and throughout the night tried a dose of Benadryl thinking it was a allergic reaction to her diclofenac. Patient is currently taking diclofenac for arthritis and otherwise cannot recall any other new drugs and or foods that she has taken. Does have an allergy to penicillins however denies taking any penicillin or penicillin related products recently. Patient denied any fevers, chills, body aches, shortness of breath currently; denies any dizziness upon standing. ED course; EKG sinus rhythm bradycardic/multiple ventricular bigmeny ; pt. endorsed history of both bradycardia and multiple PVC's; received Benadryl x3 and morphine; states feeling better. Troponin negative CT Angio: Negative for pulmonary embolus Placed on telemetry and monitored. Troponin x 3 negative ; pt. endorsed pain in other areas as well and "forgot" to tell others including pain in her legs and low back at times. Concern regarding upper extremity pain being MSK in nature; CT neck ordered; yielded results of moderate cervical canal stenosis. Advised to follow up in outpatint setting for this to be addressed. pt provided addionatal prednisone for pain and advised to use OTC benadryl for her itchiness. pt agreed. Discharged in stable condition. TSH elevated but recently increased her levothyroxine to 120 mcg daily; advised to follow up with her PCP for appropriate titration. pt. advised to follow up with cardiology regarding her history of Bradycardia and ventricular Bigeminy; pt discharged at NSR, pulse of 85, and endorsing no chest pain. - Discharge Data Discharge Date: 12/23/19 Discharge Disposition: Home, Self-Care 01 Condition: Stable - Referral to Home Health Primary Care Physician: Kaelyn Kim NP - Patient Instructions Diet: Heart Healthy Diet Notify Provider of: Fever, Increased Pain, Nausea and/or Vomiting Other/Special Instructions: You are advised to follow up with your primary care provider. It is also recommmended you follow up with your Bead Machine Operator; we will rpovide information to you regarding a potential appointment with Cardiology. Please take your medications as precribed; notify your provider if you have any questions. You can use over the couner Benadryl (Diphenhydramine) for symptoms of itchiness if they develop; please follow the directions on the packaging. - Discharge Plan *PRESCRIPTION DRUG MONITORING PROGRAM REVIEWED*: Not Applicable *COPY OF PRESCRIPTION DRUG MONITORING REPORT IN PATIENT KARLA: Not Applicable Prescriptions/Med Rec: methylPREDNISolone [Medrol Dose Pack] 4 mg PO DAILY 6 Days #1 dospk Home Medications: Home Meds Albuterol Sulfate [Proair Hfa] 1 puff INH Q4H PRN 03/10/19 [History] Levothyroxine [Synthroid] 125 mcg PO ACBREAKFAST 12/23/19 [History] Omeprazole 20 mg PO BIDAC cap.cr 12/23/19 [Rx] methylPREDNISolone [Medrol Dose Pack] 4 mg PO DAILY 6 Days #1 dospk 12/23/19 [Rx ] Oxygen Therapy Mode: Room Air Patient Handouts: Nonspecific Chest Pain, Adult, [id number], Spinal Stenosis , [id number], Methylprednisolone tablets Referrals: Jen Dawson MD [Physician] - (We will make a cardiology appointment for you tomorrow; their office should call you to verify. Appointment regarding frequent PVCs, ventricular bigemeny and bradycardia.) Kaelyn Kim NP [Primary Care Provider] - 12/31/19 8:30 am - Discharge Summary/Plan Comment DC Time >30 min.: No - Patient Data Vitals - Most Recent: Last Vital Signs Temp 97.0 F 12/23/19 15:57 Pulse 85 12/23/19 15:57 Resp 18 12/23/19 15:57 BP 147/97 H 12/23/19 15:57 Pulse Ox 93 L 12/23/19 15:57 Weight - Most Recent: 108.862 kg I&O - Last 24 hours: Intake & Output 12/23/19 12/23/19 12/23/19 06:59 14:59 22:59 Intake Total 500 1200 Output Total 1500 Balance 500 -300 Lab Results - Last 24 hrs: Laboratory Results - last 24 hr 12/23/19 12/23/19 12/23/19 Range/Units 05:26 05:26 05:26 WBC 7.92 (4.0-11.0) K/uL RBC 4.76 (4.30-5.90) M/uL Hgb 13.5 (12.0-16.0) g/dL Hct 42.2 (36.0-46.0) % MCV 88.7 (80.0-98.0) fL MCH 28.4 (27.0-32.0) pg MCHC 32.0 (31.0-37.0) g/dL RDW Std Deviation 39.0 (28.0-62.0) fl RDW Coeff of Eliza 12 (11.0-15.0) % Plt Count 270 (150-400) K/uL MPV 10.30 (7.40-12.00) fL Neut % (Auto) 65.1 (48.0-80.0) % Lymph % (Auto) 27.4 (16.0-40.0) % [place] % (Auto) 5.9 (0.0-15.0) % Eos % (Auto) 1.1 (0.0-7.0) % Baso % (Auto) 0.5 (0.0-1.5) % Neut # (Auto) 5.2 (1.4-5.7) K/uL Lymph # (Auto) 2.2 (0.6-2.4) K/uL [place] # (Auto) 0.5 (0.0-0.8) K/uL Eos # (Auto) 0.1 (0.0-0.7) K/uL Baso # (Auto) 0.0 (0.0-0.1) K/uL Nucleated RBC % 0.0 /100WBC Nucleated RBCs # 0 K/uL Sodium 137 (136-145) mmol/L Potassium 4.1 (3.5-5.1) mmol/L Chloride 101 (98-107) mmol/L Carbon Dioxide 25.9 (21.0-32.0) mmol/L BUN 12 (7.0-18.0) mg/dL Creatinine 1.0 (0.6-1.0) mg/dL Est Cr Clr Drug Dosing 64.72 mL/min Estimated GFR (MDRD) 58.5 ml/min Glucose 124 H (74-106) mg/dL Hemoglobin A1c (4.5-6.2) % Calcium 8.9 (8.5-10.1) mg/dL Phosphorus (2.6-4.7) mg/dL Magnesium (1.8-2.4) mg/dL Total Bilirubin 0.3 (0.2-1.0) mg/dL AST 15 (15-37) IU/L ALT 18 (14-63) IU/L Alkaline Phosphatase 46 (46-116) U/L Troponin I < 0.050 (0.000-0.056) ng/mL Total Protein 7.4 (6.4-8.2) g/dL Albumin 3.8 (3.4-5.0) g/dL Globulin 3.6 (2.6-4.0) g/dL Albumin/Globulin Ratio 1.1 (0.9-1.6) Triglycerides 197 (0-200) mg/dL Cholesterol 272 H (50-200) mg/dL LDL Cholesterol, Calc 179 (60-180) mg/dL VLDL Cholesterol 39 (5-55) mg/dL HDL Cholesterol 54 (40-60) mg/dL Cholesterol/HDL Ratio 5.0 (3.3-6.0) Lipase 86 (73-393) U/L TSH 3rd Generation 7.68 H (0.36-3.74) uIU/mL 12/23/19 12/23/19 12/23/19 Range/Units 05:26 08:37 08:37 WBC (4.0-11.0) K/uL RBC (4.30-5.90) M/uL Hgb (12.0-16.0) g/dL Hct (36.0-46.0) % MCV (80.0-98.0) fL MCH (27.0-32.0) pg MCHC (31.0-37.0) g/dL RDW Std Deviation (28.0-62.0) fl RDW Coeff of Eliza (11.0-15.0) % Plt Count (150-400) K/uL MPV (7.40-12.00) fL Neut % (Auto) (48.0-80.0) % Lymph % (Auto) (16.0-40.0) % [place] % (Auto) (0.0-15.0) % Eos % (Auto) (0.0-7.0) % Baso % (Auto) (0.0-1.5) % Neut # (Auto) (1.4-5.7) K/uL Lymph # (Auto) (0.6-2.4) K/uL [place] # (Auto) (0.0-0.8) K/uL Eos # (Auto) (0.0-0.7) K/uL Baso # (Auto) (0.0-0.1) K/uL Nucleated RBC % /100WBC Nucleated RBCs # K/uL Sodium (136-145) mmol/L Potassium (3.5-5.1) mmol/L Chloride (98-107) mmol/L Carbon Dioxide (21.0-32.0) mmol/L BUN (7.0-18.0) mg/dL Creatinine (0.6-1.0) mg/dL Est Cr Clr Drug Dosing mL/min Estimated GFR (MDRD) ml/min Glucose (74-106) mg/dL Hemoglobin A1c 5.7 (4.5-6.2) % Calcium (8.5-10.1) mg/dL Phosphorus 3.4 (2.6-4.7) mg/dL Magnesium 1.9 (1.8-2.4) mg/dL Total Bilirubin (0.2-1.0) mg/dL AST (15-37) IU/L ALT (14-63) IU/L Alkaline Phosphatase (46-116) U/L Troponin I < 0.050 (0.000-0.056) ng/mL Total Protein (6.4-8.2) g/dL Albumin (3.4-5.0) g/dL Globulin (2.6-4.0) g/dL Albumin/Globulin Ratio (0.9-1.6) Triglycerides (0-200) mg/dL Cholesterol (50-200) mg/dL LDL Cholesterol, Calc (60-180) mg/dL VLDL Cholesterol (5-55) mg/dL HDL Cholesterol (40-60) mg/dL Cholesterol/HDL Ratio (3.3-6.0) Lipase (73-393) U/L TSH 3rd Generation (0.36-3.74) uIU/mL 12/23/19 Range/Units 12:10 WBC (4.0-11.0) K/uL RBC (4.30-5.90) M/uL Hgb (12.0-16.0) g/dL Hct (36.0-46.0) % MCV (80.0-98.0) fL MCH (27.0-32.0) pg MCHC (31.0-37.0) g/dL RDW Std Deviation (28.0-62.0) fl RDW Coeff of Eliza (11.0-15.0) % Plt Count (150-400) K/uL MPV (7.40-12.00) fL Neut % (Auto) (48.0-80.0) % Lymph % (Auto) (16.0-40.0) % [place] % (Auto) (0.0-15.0) % Eos % (Auto) (0.0-7.0) % Baso % (Auto) (0.0-1.5) % Neut # (Auto) (1.4-5.7) K/uL Lymph # (Auto) (0.6-2.4) K/uL [place] # (Auto) (0.0-0.8) K/uL Eos # (Auto) (0.0-0.7) K/uL Baso # (Auto) (0.0-0.1) K/uL Nucleated RBC % /100WBC Nucleated RBCs # K/uL Sodium (136-145) mmol/L Potassium (3.5-5.1) mmol/L Chloride (98-107) mmol/L Carbon Dioxide (21.0-32.0) mmol/L BUN (7.0-18.0) mg/dL Creatinine (0.6-1.0) mg/dL Est Cr Clr Drug Dosing mL/min Estimated GFR (MDRD) ml/min Glucose (74-106) mg/dL Hemoglobin A1c (4.5-6.2) % Calcium (8.5-10.1) mg/dL Phosphorus (2.6-4.7) mg/dL Magnesium (1.8-2.4) mg/dL Total Bilirubin (0.2-1.0) mg/dL AST (15-37) IU/L ALT (14-63) IU/L Alkaline Phosphatase (46-116) U/L Troponin I < 0.050 (0.000-0.056) ng/mL Total Protein (6.4-8.2) g/dL Albumin (3.4-5.0) g/dL Globulin (2.6-4.0) g/dL Albumin/Globulin Ratio (0.9-1.6) Triglycerides (0-200) mg/dL Cholesterol (50-200) mg/dL LDL Cholesterol, Calc (60-180) mg/dL VLDL Cholesterol (5-55) mg/dL HDL Cholesterol (40-60) mg/dL Cholesterol/HDL Ratio (3.3-6.0) Lipase (73-393) U/L TSH 3rd Generation (0.36-3.74) uIU/mL Med Orders - Current: Current Medications Acetaminophen/Codeine Phosphate (Tylenol With Codeine No.3 300mg/30mg) 1 tab PO Q4H PRN PRN Reason: Pain Last Admin: 12/23/19 11:58 Dose: 1 tab Heparin Sodium (Porcine) (Heparin Sodium) 5,000 units SUBCUT Q12H [facility] [place] Last Admin: 12/23/19 08:45 Dose: 5,000 units Sodium Chloride (Normal Saline) 500 mls @ 999 mls/hr IV STAT [facility] [place] Last Admin: 12/23/19 08:52 Dose: 999 mls/hr Levothyroxine Sodium (Levothyroxine) 125 mcg PO ACBREAKFAST [facility] [place] Last Admin: 12/23/19 09:38 Dose: 125 mcg Methylprednisolone Sodium Succinate (Solu-Medrol) 40 mg IVPUSH Q6H [facility] [place] Last Admin: 12/23/19 16:23 Dose: 40 mg Omeprazole (Omeprazole) 20 mg PO BIDAC [facility] [place] Last Admin: 12/23/19 17:59 Dose: Not Given Sodium Chloride (Saline Flush) 2.5 ml FLUSH ASDIRECTED PRN PRN Reason: Keep Vein Open Sodium Chloride (Saline Flush) 2.5 ml FLUSH ASDIRECTED PRN PRN Reason: Keep Vein Open Discontinued Medications Aspirin (Aspirin) 324 mg PO ONETIME ONE Stop: 12/23/19 06:48 Last Admin: 12/23/19 07:27 Dose: 324 mg Diphenhydramine HCl (Benadryl) 25 mg IVPUSH ONETIME ONE Stop: 12/23/19 05:23 Last Admin: 12/23/19 05:29 Dose: Not Given Diphenhydramine HCl (Benadryl) 25 mg IVPUSH ONETIME ONE Stop: 12/23/19 07:06 Last Admin: 12/23/19 07:28 Dose: 25 mg Famotidine (Pepcid) 20 mg IVPUSH ONETIME ONE Stop: 12/23/19 05:22 Last Admin: 12/23/19 05:29 Dose: Not Given Magnesium Sulfate 2 gm/ Premix 50 mls @ 50 mls/hr IV ONETIME ONE Stop: 12/23/19 12:43 Last Admin: 12/23/19 11:59 Dose: 50 mls/hr Iopamidol (Isovue Multipack-370 (76%)) 50 ml IVPUSH ONETIME STA Stop: 12/23/19 06:23 Last Admin: 12/23/19 06:23 Dose: 50 ml Levothyroxine Sodium (Synthroid) 100 mcg PO ACBREAKFAST STEVE Levothyroxine Sodium (Levothyroxine) 125 mcg PO ACBREAKFAST STEVE Morphine Sulfate (Morphine) 4 mg IVPUSH ONETIME ONE Stop: 12/23/19 06:48 Last Admin: 12/23/19 07:29 Dose: 4 mg Ondansetron HCl (Zofran) 4 mg IVPUSH ONETIME ONE Stop: 12/23/19 06:49 Last Admin: 12/23/19 07:28 Dose: 4 mg
[2019-12-24] MEDS ORDERED: Levothyroxine 125 MCG Tab PO SCH (07:30)
[2019-12-24] MEDS ORDERED: Levothyroxine 100 MCG Tab PO SCH (07:30)
== END 2019-12-23 18:41 | disposition home or self-care (01) ==
LOC: MW.ED 04:54 → MW.MS 06:53
PROVIDERS: ADMIT Student in an Organized Health Care Education/Training Program; ATTEND Student in an Organized Health Care Education/Training Program
DX: R07.89 Other chest pain (principal); E03.9 Hypothyroidism, unspecified; E66.9 Obesity, unspecified; E78.5 Hyperlipidemia, unspecified; Z88.0 Allergy status to penicillin; Z88.7 Allergy status to serum and vaccine; Z79.899 Other long term (current) drug therapy; Z86.39 Personal history of other endocrine, nutritional and metabolic disease; Z98.890 Other specified postprocedural states; Z68.37 Body mass index [BMI] 37.0-37.9, adult
CPT/HCPCS: 36415; 71275; 72125; 80053; 80061; 83036; 83690; 83735; 84100; 84443; 84484; 85025; 93005; A9270; J1200; J1644; J2270; J2405; J2920; J3475; J7040; Q9967; 96374; 96375; 99284; 99285-25

== ENCOUNTER 2024-01-03 10:16 | Day surgery (SDC) | payer BC ==
[2024-01-03] MEDS: Lactated Ringers 1,000 ML IV SCH (10:52)
[2024-01-03] MEDS ORDERED: Ondansetron 4 MG/2 ML SDV ONE (11:25)
[2024-01-03] MEDS ORDERED: propofoL 50 ML ONE (11:25)
[2024-01-03] MEDS ORDERED: Magnesium Sulfate (4.06 MEQ/ML) 5 GM/10 ML SDV ONE (11:25)
[2024-01-03] MEDS ORDERED: Lidocaine 2% 5 ML SDV ONE (11:58)
== END 2024-01-03 13:10 | disposition home or self-care (01) ==
LOC: MW.SDS 10:16
PROVIDERS: ATTEND Surgery
DX: R19.4 Change in bowel habit (principal); R10.12 Left upper quadrant pain; J45.909 Unspecified asthma, uncomplicated; E78.5 Hyperlipidemia, unspecified; E78.00 Pure hypercholesterolemia, unspecified; E03.9 Hypothyroidism, unspecified; Z79.890 Hormone replacement therapy; Z79.899 Other long term (current) drug therapy; Z88.0 Allergy status to penicillin
CPT/HCPCS: 45380; J2405; J2704; J3475; J7120; 00811; J3490